=== PATIENT | female | born 1965 | race Caucasian/White ===

== ENCOUNTER 2019-04-22 08:23 | Outpatient (RCR) | payer MEDICARE, MEDICAID, SELFPAY | END 2019-05-13 00:01 | LOC: SPT 08:23 | PROVIDERS: Family Provider Physician Assistant; Visit Provider Specialist | DX: M25.551 Pain in right hip (principal) | CPT/HCPCS: 97161; 97530 ==

== ENCOUNTER 2019-06-03 07:53 | Inpatient (IN) | payer MEDICARE, MEDICAID, SELFPAY ==
[2019-06-02 08:57] VITALS: BMI 42.7
[2019-06-03] VITALS (20 sets, daily range): BP systolic 95–137; BP diastolic 59–84; PULSE 48–81; RESP 16–20; TEMP 36.3–37.4; O2SAT 92–100
[2019-06-03] MEDS: sodium chloride 0.9% 1,000 ML 30 ML IV (06:31)
[2019-06-03] MEDS: scopolamine 1.5 Patch 1 PATCH TRANSDERMA (06:31)
[2019-06-03] MEDS: ondansetron 2 mg/ML SDV 2 mL 4 MG IVP ×2 (06:32→14:23)
[2019-06-03] MEDS: heparin 5,000 unit/mL INJ 1 mL 5000 UNIT SUBCUT ×2 (06:32→23:09)
--- NOTE | 2019-06-03 06:34 | PM.HPUD ---
H&P update H&P Update: DATE OF SURGERY/PROCEDURE: 06/03/19 DATE H&P PERFORMED: 04/24/19 PLANNED PROCEDURE: Operation Date: 06/03/19 08:25 Proposed Procedures p Laparoscopic Gastric Sleeve w/ EGD/possible open(Not Applicable) - Antony June MD Full H&P HPI: PLANNED PROCEDURE: Laparoscopic vertical gastric sleeve and intraoperative EGD HPI: Chief complaint ; obesity HPI :this is a pleasant 54 years old female morbidly obese patient with multiple medical comorbidities, been struggling with her weight on daily basis, was referred to my bariatric surgery practice for further evaluation and potential intervention, undergone supervised medical weight loss and she met all the criteria for insurance approval as well as an upper GI study was done and demonstrated normal findings. ROS: ROS: General obesity Respiratory no difficulty in breathing Cardiovascular no chest pain or shortness of breath or dyspnea Gastrointestinal history of GERD Musculoskeletal left hip problem/fibromyalgia All other systems are negative Pertinent Exam Findings: PHYSICAL EXAM: alert, oriented x 3, clear to auscultation bilaterally and regular rate & rhythm OTHER PERTINENT EXAM FINDINGS: Abdominal examination; Morbidly obese, nontender, nondistended, soft No signs of guarding or rigidity A&P Assessment and plan (1) Obesity: After thorough history physical examination and reviewing the chart Overall, I believe the patient would be a great candidate for bariatric surgery.Patient have doubled demonstration understanding of all the appropriate teaching including diet, exercise and NSAID use. The patient appears to be committed to the lifestyle changes acquired for bariatric surgery I have discussed with the patient the potential risks of the surgery, including wound infection, wound problems,bleeding, anastomotic leak,internal hernia, stricture, ulceration, abdominal hernia, DVT/PE,, pneumonia,dumping syndrome, vitamin and mineral deficiencies, gallbladder and kidney stones ,sepsis, multiorgan failure and even , and potential future surgical interventions. Also patient is aware of potential related complications to bougie insertion and EGD, perforation of the esophagus or stomach or other viscera, may require further surgeries conversion to open Discussed with loss: 5% of total body weight prior to surgery An informed consent per chart to proceed with laparoscopic vertical gastric sleeve and esophagogastroduodenoscopy The patient understood and was aware of these complications. The patient verbalized understanding and agreed with the plan of care Patient received at least 60 minutes of counseling regarding nutritional guidelines specific for the bariatric surgery patient, we discussed in detail required diet and lifestyle changes that need to be made in order to be successful with weight loss after surgery. The patient has also been educated on multiple other options for weight loss which does not involve surgery, Also patient attended all seminars preoperatively, and All questions have been answered and all concerns have been addressed to patient's satisfaction. Will plan to send a standard preoperative blood work due to the patient's metabolic syndrome prior to bariatric surgery. In the form of CBC CMP complete lipid profile, vitamin D,B levels, coags, hemoglobin A1c, iron, folic acid level. Status: Acute Code(s): E66.9 - Obesity, unspecified
[2019-06-03] MEDS: pantoprazole 40 mg SDV IVP (06:38)
--- NOTE | 2019-06-03 07:10 | ANES.PREANES ---
Pre-Anesthetic Assessment Pre-Anesthetic Assessment: Height/Weight: Height 1.55 m Weight 102.512 kg Temp Pulse Resp BP Pulse Ox 97.9 F 65 18 122/68 96 06/03/19 06:14 06/03/19 06:14 06/03/19 06:14 06/03/19 06:14 06/03/19 06:14 Preop Diagnosis: Morbid obesITY Proposed Procedure: Operation Date: 06/03/19 08:25 Proposed Procedures p Laparoscopic Gastric Sleeve w/ EGD/possible open(Not Applicable) - Antony June MD Last intake: Intake Last Liquid Date 06/02/19 Last Liquid Time 23:00 Exam: Pre-Anes Outpt Exam: alert, oriented x 3, clear to auscultation bilaterally and regular rate & rhythm Airway: Submandibular: WNL Cervical ROM: WNL MP: 1 Dentition: False Pulmonary: Pulmonary: Asthma GI: GI: GERD Musc/skel: Musc/skel: Fibromyalgia and Lower Back Pain Comments: bilateral radiculopathy Neuropsych: Neuropsych: Bipolar Anesthetic Plan: ASA status: III Anesthesia: General Meds/Allergies Current Medications: Current Medications Generic Name Dose Route Start Last Admin Trade Name Freq PRN Reason Stop Dose Admin Sodium Chloride 1,000 mls @ 30 ml s/hr 06/03/19 06:15 06/03/19 06:31 Sodium Chloride 0.9% IV 06/04/19 06:14 30 mls/hr .Q24H PIERRE Administration Ondansetron HCl 4 mg 06/03/19 06:10 06/03/19 06:32 Zofran IVP 4 mg Q6H PRN Administration NAUSEA AND VOMITI NG PFSH Anesthesia PFSH: Medical History (Updated 06/03/19 @ 06:41 by Antony June MD) Obesity (Acute) Female Reproductive History: Date of last menstrual period: 06/02/09 Data Anesthesia Cardiac Studies: No Data to Display
[2019-06-03] MEDS: midazolam 1 mg/mL INJ 2 mL 2 MG IVP (07:35)
[2019-06-03] MEDS: fentaNYL 50 mcg/mL INJ 2mL IVP ×2 (07:35→11:50)
[2019-06-03] MEDS: lidocaine 2% INJ 20 mL INJECTION (09:48)
--- NOTE | 2019-06-03 11:21 | PM.OP ---
Operative Report Date of procedure: 06/04/19 Pre-op Diagnosis: Morbid obesITY Post-op diagnosis: same Procedure Done: Laparoscopic vertical gastric sleeve and intraoperative EGD Implants: Seam guard Specimens removed/disposition: Partial gastrectomy status post gastric sleeve Surgeon: Antony June Carton Inspector: Surgical Rebeca Elizabeth and Ana Circulating nurses Itzel and Christi Anesthesia: General (DIRECTOR CORPORATE SECURITY Mahamed) Estimated blood loss (mL): 50 IV fluids (mL): 1,000 Urine output (mL): 200 Complications: No immediate complication Findings: Normal-looking viscera Condition: stable Disposition: floor Brief History: This is a pleasant 54 years old female patient morbidly obese with multiple medical comorbidities, seen and evaluated in bariatric surgery office and was counseled for laparoscopic vertical gastric sleeve after she fulfilled all the criteria, patient agreed to proceed accordingly. Informed consent per chart Procedure: Patient was identified in holding area , appropriate pharmacologic DVT prophylaxis was given and preoperative IV fluid hydration, patient was then taken to the operating room where the patient was placed in supine position, intubated by anesthesia prophylactic antibiotics were given per protocol,Time-out was done verifying the patient's name/date of /planned procedure and destination after the procedure, all were in agreement. SCDs confirmed to be functioning, and beta shen protocol was confirmed. A Morrison catheter was inserted by the circulating nurse revealing clear urine. A foot board was applied to secure the patient while the patient is placed in reversed Trendelenburg, all pressure points were padded, and the patient was appropriately secured to the table, anesthesia was asked to rotate the table back and forth to verify that the patient is appropriately secured, and that was the case. The abdomen was prepped and draped under the usual sterile technique. A 1 cm transverse incision was made with a 15 blade scalpel approximately 15 cm below the xiphoid process and 3 cm left of the midline.A 12 mm optical trocar port was placed under direct vision into the peritoneal cavity without evidence of injury to peritoneal structures upon entry. The peritoneal cavity was insufflated with carbon dioxide gas up to 15 mmHg pressure. A 45? angle laparoscopy was placed through the port into the peritoneal cavity there was no significant blood, fluid, or evidence of intra-abdominal injury under direct visualization, 5 mm trocars were then used;a 12 mm trocar port was placed in the right epigastric region and a fourth 5 mm trocar port was placed in the mid epigastric region more caudad than and medial to the previous port. I lifted the omentum up to make sure there were no injuries encountered from the initial trocar insertion , and there was not. A 5 mm trocar port was placed in the left lateral flank and additional 5 mm trocar was inserted midway between the left lateral flank trocar and the initial 12 mm trocar , A subxiphoid stab incision was made and dissection into the peritoneum with 5 mm obturator.A grasping laparoscopic clamp was inserted through here and clamped to the right sanket of the diaphragm to elevate The liver for the entirety of the case. Patient was then placed in the reversed Trendelenburg Following this, the greater curvature of the stomach was freed from the omentum using the harmonic scalpel. This division included the short gastric vessels proximally. This dissection was carried from approximately 4 cm-6 cm proximal to the pylorus and extending all the way up to the angle of Hiss. During this process the posterior aspect of the stomach was mobilized from the underlying peritoneum and the posterior aspect of the stomach was well exposed. With the greater curvature of the stomach exposed from within 4-6 cm of the pylorus and extending to the angle of Hiss, which also included the posterior stomach, a 40 Czech standard template passed under direct vision down the esophagus, stomach, and into the first part of the duodenum by the anesthesia provider and under direct guidance and visualization by me,via the laparoscopy. Using the template 40 Czech aligned along the lesser curvature of the stomach and all the way to the first part of the Duodenum,the 40 Czech Bougie was used as a template the laparoscopic vertical gastric sleeve was performed starting from a point about 5 cm from the pylorus along the greater curvature.Using the [place] Laparoscopic GIOVANA linear cutting stapler with Seam guarded enforcement, a series of litzy were used to transect the stomach in a vertical fashion along the left side of the template.,Care was taken not to narrow the angularis Through the entire division of the stomach using the staplers,the template was always checked to be in good place and well aligned to the lesser curvature while dividing the stomach. This was carried all the way to the angle of Hiss.Green loads were used for all stapler loads. The staple line along the remaining tubularized stomach was tested for leaks and bleeding under direct vision as the 40 Czech template was removed (and there was no evidence of blood on the tip of the template) by a standard diagnostic EGD via the mouth by me after I scrubbed out , insufflation was achieved and the staple line submerged under saline, meanwhile a clamp was applied distally onto the end of the tubularized stomach to allow insufflation test for leak the clamp was held in place by my traffic assistant. There was no evidence of leak .There was adequate hemostasis along the staple line.EGD was taken out at this point after deflation of the tubularized stomach. At that point I scrubbed back in; The transected partial stomach, which included the greater curvature, was removed from the peritoneum through the first 12 mm trocar site, and was sent for permanent pathology Prior to closure of the fascia. A final look laparoscopy identified no injuries.. An interrupted 0 Vicryl suture on a granny needle suture passer was used to close the right epigastric and the other 12 mm trocar left of the midline fascial defects under direct visualization. The other trocars were removed under direct vision and no evidence of bleeding was identified. The pneumoperitoneum was decompressed. All skin incisions were irrigated with saline, then closed with litzy, followed by application of sterile dressings.The patient was extubated and transferred to the recovery room with normal vital signs. All counts of instruments and sponges and needles were completed at the end of the procedure I was present for the whole entire procedure
--- NOTE | 2019-06-03 11:38 | SUR.PHASEI ---
1132 PATIENT TO PACU AT THIS TIME FROM OR. RR EVEN AND UNLABORED. PWD. PLACED ON SIMPLE MASK AT 8L. SPO2 99%. CARO CATH IN PLACE. 6 INCISIONS NOTED TO ABDOMEN, CDI.
--- NOTE | 2019-06-03 12:27 | SUR.PHASEI ---
1213 PATIENT TO MED SURG VIA BED AT THIS TIME. RR EVEN AND UNLABORED. PWD. 6 INCISIONS TO ABDOMEN, CDI.
[2019-06-03] MEDS: morphine 4 mg/mL SDV 1 mL 2 MG IVP ×3 (12:48→23:29)
[2019-06-03] MEDS: sodium chloride 0.9% 1,000 ML 125 ML IV ×2 (12:49→20:46)
[2019-06-03] MEDS: famotidine 20 mg/2 mL INJ IVP ×2 (12:51→23:10)
[2019-06-04] VITALS (9 sets, daily range): BP systolic 130–150; BP diastolic 71–90; PULSE 56–90; RESP 17–22; TEMP 36.7–37.3; O2SAT 91–97
[2019-06-04 03:21] LABS: Hematocrit 35.6 % (37.0-47.0); Hemoglobin 12.2 g/dL (11.5-15.3)
[2019-06-04 03:32] LABS: Anion Gap 15.3 (5-19); Blood Urea Nitrogen 8 mg/dL (6-20); Calcium 8.4 mg/Dl (8.6-10.0); Carbon Dioxide 22 mmol/L (22-29); Chloride 101 mmol/L (98-107); Glomerular Filtration Rate 232.7 mL/min (90-130); Glucose 113 mg/dL (74-109); Potassium 3.3 mmol/L (3.5-5.1); Sodium 135 mmol/L (136-145)
[2019-06-04] MEDS: sodium chloride 0.9% 1,000 ML 125 ML IV ×3 (04:16→20:53)
[2019-06-04] MEDS: morphine 4 mg/mL SDV 1 mL 2 MG IVP ×2 (05:20→09:27)
--- NOTE | 2019-06-04 06:12 | P.PN_ITS ---
Subjective Subjective: Interval history: Patient overall feels well yet little bit sore No acute events overnight Vitals/I&O/Wt Last Vital Signs Temp 98.1 F 06/04/19 03:35 Pulse 66 06/04/19 03:35 Resp 20 H 06/04/19 05:20 BP 134/74 06/04/19 03:35 Pulse Ox 96 06/04/19 05:20 06/03/19 06/03/19 06/04/19 14:59 22:59 06:59 Intake Total 850 / 850 1093.75 / 1943.75 937.5 / 2881.25 Output Total 475 / 475 1100 / 1575 1050 / 2625 Balance 375 / 375 -6.25 / 368.75 -112.5 / 256.25 Weight last 48 hrs Weight 226 lb Physical Exam Const: COMMON NORMALS: no apparent distress and oriented x3 GENERAL APPEAR ANCE: cooperative ORIENTATION/CONSCIOUSNESS: Yes awake, Yes oriented to person, Yes oriented to place and Yes oriented to time Eye: COMMON NORMALS: PERRL and no scleral icterus PUPIL: Yes PERRL Chest: COMMONS NORMALS: inspection of chest normal Resp: COMMON NORMALS: normal respiratory effort and clear to auscultation bilaterally AUSCULTATION: clear to auscultation bilaterally Cardio: COMMON NORMALS: S1 normal heart sound and S2 normal heart sound; negative for no murmurs HEART SOUNDS: S1 normal and S2 normal GI: COMMON NORMALS: soft to palpation; negative for no hepatosplenomegaly INSPECTION: Yes normal to inspection PALPATION: Yes soft, No firm, Yes tender (At incision sites), No guarding, No rigid and No no hepatosplenomegaly Neuro: COMMON NORMALS: oriented x3 SENSORIUM/ORIENTATION: Yes oriented to p erson, Yes oriented to place and Yes oriented to time Psych: COMMON NORMALS: mental status grossly normal Urinary Catheter Management^: Morrison: Cath Placed During This Visit: no Data : 06/04/19 03:10 06/04/19 03:10 A&P Assessment and plan (1) S/P laparoscopic sleeve gastrectomy: Postoperative day 1 Upper GI study showed no leak we will start the patient on clear liquid P.o. pain medication Encourage ambulation with assistance Incentive spirometer every hour We will drop the IV fluids once the patient tolerates well p.o. Strict I's and O Assurance and education All questions have been answered and all concerns have been addressed to patient's satisfaction. Status: Acute Code(s): Z98.84 - Bariatric surgery status (2) Hypokalemia: Replacement with p.o. 40 mEq KCl x1 Status: Acute Code(s): E87.6 - Hypokalemia Attestations Medical Necessity Statement*: Medical necessity care is expected to cross 2 midnights Time Spent in Patient Care: 16 - 35 minutes (>than 50% of time spent in counselling and/or direct pt care on unit) . Coding Level of Care Code Acute Sap Portal Architect for Chg Fwd Diagnoses S/P laparoscopic sleeve gastrectomy Z98.84 Hypokalemia E87.6
[2019-06-04] MEDS: heparin 5,000 unit/mL INJ 1 mL 5000 UNIT SUBCUT ×3 (06:23→22:19)
--- NOTE | 2019-06-04 08:00 | FL_ITS ---
WS: [id number] Limited upper GI evaluation. HISTORY: Status post gastric sleeve. Rule out stricture or leak. COMPARISON: 01/01/2019. Fluoroscopy time: 0.1 minutes. Limited evaluation of the gastric sleeve due to patient's physical condition. Patient was unable to d rink more and needed to sit down. Patient swallowed the Gastrografin mixture without difficulty. There is no extravasation along the flores rgical procedure. Very slight delay in emptying of the distal esophagus due to mild postoperative tess ma. No strictures. FL/FL upper GI gastrografin [id number] IMPRESSION: Satisfactory recent postoperative gastric sleeve with no leak.
[2019-06-04] MEDS: famotidine 20 mg/2 mL INJ IVP ×2 (12:06→22:57)
[2019-06-04] MEDS: ondansetron 2 mg/ML SDV 2 mL 4 MG IVP ×2 (16:16→22:53)
[2019-06-04] MEDS: HYDROcodone-acetaminophen 7.5-325 mg Tablet 1 TAB PO ×2 (16:17→22:19)
[2019-06-04] MEDS: ropinirole 1 mg Tablet PO (20:54)
[2019-06-05] VITALS (9 sets, daily range): BP systolic 119–143; BP diastolic 56–85; PULSE 61–98; RESP 18–20; TEMP 36.8–37.3; O2SAT 91–95
[2019-06-05] MEDS: heparin 5,000 unit/mL INJ 1 mL 5000 UNIT SUBCUT ×3 (05:23→23:36)
[2019-06-05] MEDS: HYDROcodone-acetaminophen 7.5-325 mg Tablet 1 TAB PO ×3 (05:23→19:26)
[2019-06-05] MEDS: sodium chloride 0.9% 1,000 ML 125 ML IV (05:24)
[2019-06-05 05:33] LABS: Hematocrit 38.3 % (37.0-47.0); Hemoglobin 12.6 g/dL (11.5-15.3)
[2019-06-05 05:56] LABS: Anion Gap 13.6 (5-19); Blood Urea Nitrogen 8 mg/dL (6-20); Calcium 9.1 mg/Dl (8.6-10.0); Carbon Dioxide 23 mmol/L (22-29); Chloride 102 mmol/L (98-107); Glucose 104 mg/dL (74-109); Osmolality Calculated 276 mOsm/kg (285-295); Potassium 3.6 mmol/L (3.5-5.1); Sodium 135 mmol/L (136-145)
--- NOTE | 2019-06-05 11:25 | P.PN_ITS ---
Subjective Subjective: Interval history: Patient overall doing well Tolerating p.o. intake Issues with ambulation requiring physical therapy Vitals/I&O/Wt Last Vital Signs Temp 98.7 F 06/05/19 07:40 Pulse 61 06/05/19 08:51 Resp 18 06/05/19 08:51 BP 129/84 06/05/19 07:40 Pulse Ox 91 06/05/19 08:51 06/04/19 06/05/19 06/05/19 22:59 06:59 14:59 Intake Total 900 / 2867.253 4501 / 3020.000 240 / 240 Output Total 1220 / 1220 Balance 900 / 1900.000 -100 / 1800.000 240 / 240 Physical Exam Const: COMMON NORMALS: no apparent distress and oriented x3 GENERAL APPEARANCE: cooperative ORIENTATION/CONSCIOUSNESS: Yes awake, Yes oriented to person, Yes oriented to place and Yes oriented to time Chest: COMMONS NORMALS: inspection of chest normal Resp: COMMON NORMALS: normal respiratory effort and clear to auscultation bilaterally AUSCULTATION: clear to auscultation bilaterally Cardio: COMMON NORMALS: S1 normal heart sound and S2 normal heart sound; negative for no murmurs HEART SOUNDS: S1 normal and S2 normal GI: COMMON NORMALS: soft to palpation; negative for no hepatosplenomegaly INSPECTION: Yes normal to inspection PALPATION: Yes soft, No firm, No tender, No guarding, No rigid, No no hepatosplenomegaly and Yes other (Incisions are clean dry and and skin litzy in place) Neuro: COMMON NORMALS: oriented x3 SENSORIUM/ORIENTATION: Yes oriented to person, Yes oriented to place and Yes oriented to time Psych: COMMON NORMALS: mental status grossly normal Urinary Catheter Management^: Morrison: Cath Placed During This Visit: no Data : 06/05/19 05:01 06/06/19 05:14 A&P Assessment and plan (1) S/P laparoscopic sleeve gastrectomy: Patient undergone uneventful laparoscopic vertical gastric sleeve 06/03/19 postoperative day 2 today We will continue clear liquids Drop IV fluids to 50 mL/h Nutrition consultation follow recommendations Physical therapy on board to assess and evaluate for potential discharge home today or may require further assistance, apparently after physical therapy evaluation patient will be requiring nursing skilled facility for rehabilitation early on after surgery harvest worker field crop consultation Assurance and education All questions have been answered and all concerns have been addressed to patient's satisfaction. Status: Acute Code(s): Z98.84 - Bariatric surgery status Attestations Medical Necessity Statement*: Medical necessity care is expected to cross 2 midnights Time Spent in Patient Care: 16 - 35 minutes (>than 50% of time spent in counselling and/or direct pt care on unit) . Coding Level of Care Code Acute Habilitation Specialist for Chg Fwd Exam Problem Focused Diagnoses S/P laparoscopic sleeve gastrectomy Z98.84
[2019-06-05] MEDS: famotidine 20 mg/2 mL INJ IVP ×2 (11:44→23:35)
--- NOTE | 2019-06-05 17:05 | PC.NUTR ---
NUTR ED: Consult received for post op sleeve. Discussed with pt diet advancement for 14 day. Provided pt pro source jello while in hospital. No issues reported.
[2019-06-05] MEDS: ondansetron 2 mg/ML SDV 2 mL 4 MG IVP (19:09)
[2019-06-05] MEDS: sodium chloride 0.9% 1,000 ML 50 ML IV (19:27)
[2019-06-05] MEDS: ropinirole 1 mg Tablet PO (21:51)
[2019-06-06 03:57] VITALS: BP 121/72; PULSE 61; RESP 18; TEMP 37.1; O2SAT 93
[2019-06-06 06:17] LABS: Anion Gap 15.4 (5-19); Blood Urea Nitrogen 8 mg/dL (6-20); Carbon Dioxide 26 mmol/L (22-29); Chloride 101 mmol/L (98-107); Glucose 100 mg/dL (74-109); Osmolality Calculated 284 mOsm/kg (285-295); Potassium 3.4 mmol/L (3.5-5.1); Sodium 139 mmol/L (136-145)
[2019-06-06] MEDS: heparin 5,000 unit/mL INJ 1 mL 5000 UNIT SUBCUT (06:25)
[2019-06-06] MEDS: lanolin oint 7 gm 1 APPLIC TOPICAL (06:35)
[2019-06-06] MEDS: ondansetron 2 mg/ML SDV 2 mL 4 MG IVP (06:35)
--- NOTE | 2019-06-06 06:54 | P.PN_ITS ---
Subjective Subjective: Interval history: Patient continues to tolerate well p.o. intake and have good urine output She reports to me today that she has some tightness particularly when she is swallowing at the mid of her chest has been going on since today and first time that she would mention it to me today, otherwise she has been doing well her pain is under better control. She is able to get out of bed with assistance She does require bedside commode Vitals/I&O/Wt Last Vital Signs Temp 98.7 F 06/06/19 03:57 Pulse 61 06/06/19 03:57 Resp 18 06/06/19 03:57 BP 121/72 06/06/19 03:57 Pulse Ox 93 06/06/19 03:57 06/05/19 06/05/19 06/06/19 14:59 22:59 06:59 Intake Total 1720 / 1720 240 / 1960 120 / 2080 Output Total 2900 / 2900 600 / 3500 Balance 1720 / 1720 -2660 / -940 -480 / -1420 Physical Exam Const: COMMON NORMALS: no apparent distress and oriented x3 GENERAL APPEARANCE: cooperative ORIENTATION/CONSCIOUSNESS: Yes awake, Yes oriented to person, Yes oriented to place and Yes oriented to time HENMT: COMMON NORMALS: normocephalic HEAD & SCALP: normocephalic Eye: COMMON NORMALS: PERRL and no scleral icterus PUPIL: Yes PERRL Lymph: LYMPHATIC: no lymphadenopathy noted Chest: COMMONS NORMALS: inspection of chest normal Resp: COMMON NORMALS: normal respiratory effort and clear to auscultation bilaterally AUSCULTATION: clear to auscultation bilaterally Cardio: COMMON NORMALS: S1 normal heart sound and S2 normal heart sound; negative for no murmurs HEART SOUNDS: S1 normal and S2 normal GI: COMMON NORMALS: soft to palpation; negative for no hepatosplenomegaly INSPECTION: Yes normal to inspection PALPATION: Yes soft, No firm, No tender, No guarding, No rigid, No no hepatosplenomegaly and Yes other (Incisions are clean dry and intact and skin litzy in place) Neuro: COMMON NORMALS: oriented x3 SENSORIUM/ORIENTATION: Yes oriented to person, Yes oriented to place and Yes oriented to time Psych: COMMON NORMALS: mental status grossly normal Urinary Catheter Management^: Morrison: Cath Placed During This Visit: no Data : 06/05/19 05:01 06/06/19 05:14 A&P Assessment and plan (1) S/P laparoscopic sleeve gastrectomy: Patient undergone uneventful laparoscopic vertical gastric sleeve 06/03/19 postoperative day 3 today We will continue clear liquids Will order a stat EKG and cardiac enzymes will follow the protocol to rule out potential any underlying cardiac event, clinically most likely the patient's tightness of the chest is likely due to esophageal spasms, once this is clear patient will be potentially for discharge to jail facility. We will continue cardiac monitoring Continue physical therapy We will follow on further social worker delinquency prevention input Patient did develop some tightness at the retrosternal area with swallowing, will plan to send for serial cardiac enzymes and EKGs, if that is negative will plan to discharge the patient to a jail today. Assurance and education All questions have been answered and all concerns have been addressed to patient's satisfaction. Status: Acute Code(s): Z98.84 - Bariatric surgery status Attestations Medical Necessity Statement*: Medical necessity care is expected to cross 2 midnights Time Spent in Patient Care: 16 - 35 minutes (>than 50% of time spent in counselling and/or direct pt care on unit) . Coding Level of Care Code Acute Hvac Operations Technician for Chg Fwd Exam Problem Focused Diagnoses S/P laparoscopic sleeve gastrectomy Z98.84
[2019-06-06 07:28] VITALS: BP 122/78; PULSE 63; RESP 18; TEMP 37.2; O2SAT 90
[2019-06-06 07:39] LABS: Troponin(5th) Baseline 6 ng/mL (0-10)
[2019-06-06 07:47] VITALS: PULSE 62; O2SAT 91
--- NOTE | 2019-06-06 09:04 | ECG_ITS ---
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 [email or web address]
[2019-06-06 09:29] LABS: Troponin 5 2HR Delta 0 ABS# (0-10)
--- NOTE | 2019-06-06 12:13 | P.DS_ITS ---
Discharge Providers Date of Admission: 06/03/19 07:53 Date of Discharge: 06/08/19 Attending Provider at Admission: Antony June MD Attending Provider at Discharge: Daryrl Gonzalez Primary Care Provider: Liss Hughes Diagnoses at Discharge Discharge Diagnosis (1) S/P laparoscopic sleeve gastrectomy: Status: Acute Problem details: Discharge to half-way today Specific instructions with regard to nutrition was given to the patient with her package of discharge to the half-way Return to bariatric surgery office in 1 Reason for Visit Reason for Visit: Reason For Visit: Morbid obesity Hospital Course Discharge Summary: Overall patient is doing well, tolerating by mouth intake, stable vital signs, good urine output Patient did complain of some retrosternal tightness today and serial of cardiac enzymes and EKGs were sent and all came back as negative, likely the patient symptoms related to swallowing which is expected early on due to postsurgical edema. Patient is conscious alert oriented X3 BMI 42.7 Head and neck examination PERRLA no masses no cervical lymphadenopathy no jaundice Cardiac examination audible S1-S2 no murmurs no gallops no arrhythmias Chest is clear bilateral,abscence of Rhonchi or wheezes,no surgical emphysema Abdomen nontender nondistended soft no organomegaly guarding or rigidity/no signs of peritonitis/incisions are clean dry and intact and skin litzy in jackie ce Extremities no cyanosis no clubbing no edema Physical Exam Const: COMMON NORMALS: no apparent distress and oriented x3 GENERAL APPEARANCE: cooperative ORIENTATION/CONSCIOUSNESS: Yes awake, Yes oriented to person, Yes oriented to place and Yes oriented to time HENMT: COMMON NORMALS: normocephalic HEAD & SCALP: normocephalic Eye: COMMON NORMALS: PERRL and no scleral icterus PUPIL: Yes PERRL Lymph: LYMPHATIC: no lymphadenopathy noted Chest: COMMONS NORMALS: inspection of chest normal Resp: COMMON NORMALS: normal respiratory effort and clear to auscultation bilaterally AUSCULTATION: clear to auscultation bilaterally Cardio: COMMON NORMALS: S1 normal heart sound and S2 normal heart sound; negative for no murmurs HEART SOUNDS: S1 normal and S2 normal GI: COMMON NORMALS: soft to palpation; negative for no hepatosplenomegaly INSPECTION: Yes normal to inspection PALPATION: Yes soft, No firm, No tender, No guarding, No rigid, No no hepatosplenomegaly and Yes other (Incisions are clean dry and intact and skin litzy in place) Neuro: COMMON NORMALS: oriented x3 SENSORIUM/ORIENTATION: Yes oriented to person, Yes oriented to place and Yes oriented to time Psych: COMMON NORMALS: mental status grossly normal Skin: COMMON NORMALS: no rashes or lesions noted GENERAL SKIN EXAM: no rashes or lesions noted Urinary Catheter Management^: Morrison: Cath Placed During This Visit: no Discharge Data Data Completed and Pending: Completed Studies During Hospitalization Category Date Time Status [place] upper GI gastr ografin 88262 Rout ine Exams 06/04/19 08:00 Completed Pathology: Surgic al [PTH] Routine Pth 06/03/19 11:39 Completed Pending at discharge Category Date Time Status ES surgery / GI i mages Routine Exams 06/03/19 08:35 Taken Troponin(5th) 6 h our. Timed Lab 06/06/19 13:04 Ordered Labs from last 24 hours 06/06/19 06/06/19 06/06/19 09:08 07:15 05:14 Sodium 139 Potassium 3.4 L Chloride 101 Carbon Dioxide 26 Anion Gap 15.4 BUN 8 Creatinine 0.4 L GFR Calculation 167.0 H Glucose 100 Calculated Osmolal ity 284 L Calcium 9.0 Troponin T Baselin e 6 Troponin T 120 Min darline 6.00 Delta Troponin T 0 Vitals: Last Vital Signs Temp 98.9 F 06/06/19 07:28 Pulse 62 06/06/19 07:47 Resp 18 06/06/19 07:28 BP 122/78 06/06/19 07:28 Pulse Ox 91 06/06/19 07:47 Discharge Plan Discharge Patient Disposition: Home, Self-Care Condition: Stable Prescriptions: New Zofran 4 mg tablet 4 mg PO Q6H Qty: 30 RF: 1 Lovenox 30 mg/0.3 mL syringe 30 mg SUBCUT DAILY Qty: 0.3 RF: 0 Continued Advair Diskus 250-50 mcg/dose blister with device 250 inh INHALATION BID RF: 0 Combivent Respimat 20-100 mcg/actuation mist 18 - 103 spray INHALATION BID PRN (Reason: Dyspepsia) RF: 0 hydrocodone-acetaminophen 7.5-325 mg tablet 7.5 tab PO TID PRN (Reason: Pain) RF: 0 ropinirole 1 mg tablet 1 mg PO DAILY RF: 0 Discontinued meloxicam 15 mg tablet 15 mg PO DAILY RF: 0 Discharge Orders: Discharge Order (Routine); Ordered 06/06/19 Ordered By: Antony June Referrals: [facility] [Outside] Patient Instructions: Ondansetron (By mouth), Enoxaparin (Injection), Hypokalemia (DC), Obesity (DC) Activity Restrictions/Additional Instructions: 1. Patient can shower after 48 hours from surgery 2. Remove LITZY ON rtc 3. Up and walking as tolerated 4. Do lift more than 5 pounds first 2 weeks after surgery and not more than 25 pounds 6 to 8 weeks after surgery. 5. Do not operate heavy machinery or drive while using pain medications. 6.Contact the office or return to the ER for worsening nausea vomiting fevers or chills, or noticing any redness around incision sites or discharge. 6. Advised to return to ER or contact my office if there are any signs of infection like, increasing pain, fevers, chills, redness or drainage of pus. Discharge Date/Time: 06/06/19 15:46 Discharge Attestations Time Spent in Discharge Care*: less than 30 min Quality Metrics Clinical Quality Measures During this hospital stay, did patient experience: None Coding Level of Care Code Acute Liquor Department Manager for Chg Fwd Diagnoses S/P laparoscopic sleeve gastrectomy Z98.84
--- NOTE | 2019-06-06 12:13 | PC.SOCIAL ---
IMM Update Pg 2 of IMM given and explained to patient who voiced understanding. Signed/dated/timed and placed in chart. Copy provided to patient.
[2019-06-06 12:17] VITALS: BP 116/81; PULSE 69; RESP 18; TEMP 37.1; O2SAT 93
--- NOTE | 2019-06-06 13:04 | ECG_ITS ---
Measurements Intervals [place] Rate: 74 P: 10 PA: 141 QRS: -4 QRSD: 102 T: 10 QT: 377 QTc: 420 SINUS RHYTHM Compared to ECG 03/16/2015 00:01:21 No significant changes Electronically Signed On 06-06-2019 15:37:56 ROUGH ROUNDER MACHINE by Burke Kilpatrick M.D. [id number]
[2019-06-06 13:41] LABS: Troponin 5 6HR Delta 0 ng/L (0-12)
[2019-06-06 14:25] VITALS: BP 116/81; PULSE 69; RESP 18; TEMP 37.1; O2SAT 93
== END 2019-06-06 15:46 | disposition home or self-care (01) | DRG 621 ==
PROVIDERS: Admitting Provider Surgery; Family Provider Physician Assistant; PCP Physician Assistant; Visit Provider Pathology Anatomic Pathology & Clinical Pathology
PROC: 0DB64Z3 Excision of Stomach, Percutaneous Endoscopic Approach, Vertical (ICD-10-PCS; CPT 43775; principal; 2019-06-03 08:25)
PROC: 0DJ08ZZ Inspection of Upper Intestinal Tract, Via Natural or Artificial Opening Endoscopic (ICD-10-PCS; CPT 43235; 2019-06-03 08:25)
DX: E66.01 Morbid (severe) obesity due to excess calories (principal); G25.81 Restless legs syndrome; M48.061 Spinal stenosis, lumbar region without neurogenic claudication; F31.9 Bipolar disorder, unspecified; K21.9 Gastro-esophageal reflux disease without esophagitis; M25.552 Pain in left hip; G89.29 Other chronic pain; Z88.5 Allergy status to narcotic agent; Z68.41 Body mass index [BMI] 40.0-44.9, adult; Z79.51 Long term (current) use of inhaled steroids; Z79.899 Other long term (current) drug therapy
CPT/HCPCS: 12345; 36415; 74240; 80048; 84484; 85014; 85018; 88309; 93005; 96365; 96372; 96374; 96375; 97161; 97530; C9113; J0131; J0690; J1100; J1644; J2001; J2250; J2270; J2405; J2704; J2710; J3010; J3490; J7030

== ENCOUNTER 2019-06-09 12:46 | Outpatient (CLI) | payer MEDICARE, MEDICAID, SELFPAY ==
--- NOTE | 2019-06-09 12:55 | CT_ITS ---
WS: [id number] CT ABDOMEN AND PELVIS WITH CONTRAST HISTORY: abdominal pain, follow-up to surgery. TECHNIQUE: Imaging performed of the abdomen and pelvis with IV contrast. Single phase imaging of the abdomen. Coronal and sagittal reformats are submitted. All CT scans at [facility] use at least one of these dose optimization techniques: automated exposure control; mA and/or kV adjustment per patient size (includes targeted exams where dose is matched to clinical indication); or iterativ e reconstruction. IV CONTRAST: Omnipaque 300; 95 mL IV. Oral contrast: Yes. DLP: 1810.8 mGy.cm COMPARISON: 08/11/2015 Lower thorax: Mild dependent changes at the lung bases. Heart is normal size. No hiatal hernia. Liver/biliary system: Normal size with no intrahepatic dilatation. Gallbladder: Normal. No gallstones or wall thickening. No pericholecystic fluid. Pancreas: Normal. Spleen: Normal size spleen with a few areas of decreased attenuation similar to the prior study from 2016. Adrenal glands: Normal. Right kidney: Normal. Left kidney: Small parapelvic cysts with no obstruction. Aorta: Normal. Lymphadenopathy: None. Free fluid: None. GI tract: Recent postoperative changes of gastric sleeve are identified. There is some very mild radha a and stranding in the soft tissues around the gastric sleeve and mesentery in the anterior abdomen. No hematoma. No obstruction of the oral contrast to the gastric sleeve. Abdominal wall: Recent postoperative laparoscopic changes in the soft tissues. No hematoma. There are a few subtle small foci of air in the LEFT lateral abdominal wall which may be postoperative. No rib fracture is evident. Pelvis: Well-distended urinary bladder. Air present in the urinary bladder. No free fluid. No adenopa thy in the pelvis. Bones: Severe osteoarthritis at the LEFT hip. There is bone upon bone and subchondral changes. New si ake 2015. CT/CT abdomen pelvis w con* [id number] IMPRESSION: 1. Recent postoperative changes of gastric sleeve. No complications evident fr om the recent fall. 2. Mild dependent changes at the lung bases. 3. Severe osteoarthritis LEFT hip. 4. In the urinary bladder. If no recent instrumentation consider gas producing organisms and urinary tract infection.
[2019-06-09] MEDS: iohexol 300 mg/mL 50 mL Btl PO (13:16)
[2019-06-09] MEDS: iohexol 300 mg/mL 100 mL Btl IV (14:20)
== END 2019-06-09 12:47 | disposition home or self-care (01) ==
LOC: RAD 12:50
PROVIDERS: Family Provider Physician Assistant; PCP Physician Assistant; Visit Provider Surgery
DX: R10.9 Unspecified abdominal pain (principal); Z98.84 Bariatric surgery status; M16.12 Unilateral primary osteoarthritis, left hip
CPT/HCPCS: 74177

== ENCOUNTER → 2019-07-09 14:50 | Outpatient (BNVA) | payer MEDICARE, MEDICAID, SELFPAY | PROVIDERS: Family Provider Physician Assistant; PCP Physician Assistant; Visit Provider Specialist | DX: M25.552 Pain in left hip (principal) | CPT/HCPCS: 73502 ==

== ENCOUNTER 2019-09-29 13:32 | Outpatient (CLI) | payer MEDICARE, MEDICAID, SELFPAY ==
[2019-09-29 14:33] LABS: Basophils % 0.6 %; Eosinophils # 0.1 10^3/uL (0.0-0.8); Eosinophils % 2.6 %; Hematocrit 39.6 % (37.0-47.0); Hemoglobin 13.3 g/dL (11.5-15.3); Lymphocytes # 2.3 10^3/uL (0.8-4.8); Lymphocytes % 41.9 %; Mean Corpuscular HGB Conc 33.6 g/dL (30.0-36.0); Mean Corpuscular Hemoglobin 30.9 pg (28.0-34.0); Mean Corpuscular Volume 92.1 fL (81-99); Mean Platelet Volume 10.4 fL (7.4-10.4); Monocytes # 0.4 10^3/uL (0.2-0.9); Neutrophils # 2.6 10^3/uL (1.8-7.7); Neutrophils % 47.7 %; Nucleated Red Blood Cells % 0.6 %; Platelet Count 246 10^3/cmm (130-400); Red Cell Distribution Width 12.5 % (12.1-15.1); White Blood Count 5.4 10^3/uL (4.0-10.0)
[2019-09-29 15:07] LABS: Estmated Average Glucose 120; Hemoglobin A1C 5.8 % (4.0-6.0)
[2019-09-29 15:11] LABS: Alanine Aminotransferase 12 U/L (0-33); Alkaline Phosphatase 85 IU/L (35-105); Anion Gap 15.9 (5-19); Aspartate Amino Transferase 19 U/L (0-32); Blood Urea Nitrogen 16 mg/dL (6-20); Calcium 9.7 mg/dL (8.5-10.5); Carbon Dioxide 26 mmol/L (22-29); Chloride 104 mmol/L (98-107); Chol HDL Ratio 3.18 mg/dL (0.0-4.40); Cholesterol 156 mg/dL (0-200); Ferritin 199 ng/mL (15-150); Globulin 3.5 g/dL (1.3-4.6); Glucose 89 mg/dL (65-115); HDL Cholesterol 49 mg/dL (60-100); Iron 122 ug/dL (37-145); LDL Cholesterol Calculated 80 mg/dL (50-129); LDL HDL Ratio 1.63 RATIO (0.00-3.22); Osmolality Calculated 290 mOsm/kg (285-295); Percent Saturation 43.5 % (20-50); Phosphorus 4.1 mg/dL (2.5-4.5); Potassium 3.9 mmol/L (3.5-5.1); Sodium 142 mmol/L (136-145); Thyroid Stimulating Hormone 0.75 uIU/mL (0.27-4.20); Total Bilirubin 0.5 mg/dL (0.15-1.2); Total Iron Binding Capacity 280 mcg/dl; Total Protein 7.5 g/dL (6.6-8.7); Triglycerides 133 mg/dL (0-150); Unsaturated Iron Binding 158 ug/dL (112-347); Vitamin B12 316 pg/mL (232-1245)
[2019-09-29 15:54] LABS: Calcium 8.9 mg/dL (8.5-10.5); Parathyroid Hormone 51.6 pg/mL (15-65)
[2019-09-30 05:11] LABS: Folate Level > 20.0 ng/mL (4.8-37.3)
[2019-10-03 08:51] LABS: Vitamin B1(Thiamin) Plas/Ser 17 nmol/L (8-30)
[2019-10-03 15:57] LABS: Vit D 1,25 (Oh)2, Total 43 pg/mL (18-72); Vit D2 1,25 (Oh)2 <8 pg/mL; Vit D3 1,25 (Oh)2 43 pg/mL
== END 2019-09-29 13:33 | disposition home or self-care (01) ==
PROVIDERS: PCP Physician Assistant; Visit Provider Surgery
DX: E66.9 Obesity, unspecified (principal)
CPT/HCPCS: 36415; 80053; 80061; 82248; 82310; 82607; 82652; 82728; 82746; 83036; 83540; 83550; 83735; 83970; 84100; 84425; 84443; 85025

== ENCOUNTER → 2019-10-24 13:21 | Outpatient (BNVA) | payer MEDICARE, SELFPAY | PROVIDERS: PCP Physician Assistant; Visit Provider Psychiatry & Neurology Psychiatry | DX: F60.3 Borderline personality disorder (principal); F41.1 Generalized anxiety disorder; F15.21 Other stimulant dependence, in remission; F33.2 Major depressive disorder, recurrent severe without psychotic features | CPT/HCPCS: 99204 ==

== ENCOUNTER → 2019-10-30 11:16 | Outpatient (BNVA) | payer MEDICARE, MEDICAID, SELFPAY | PROVIDERS: PCP Physician Assistant; Visit Provider Specialist | DX: M16.12 Unilateral primary osteoarthritis, left hip (principal) | CPT/HCPCS: 73502; 87081 ==

== ENCOUNTER 2019-11-04 13:26 | Inpatient (IN) | payer MEDICARE, MEDICAID, SELFPAY ==
[2019-10-31 08:13] VITALS: BMI 33.6
--- NOTE | 2019-10-31 08:28 | P.ANESASSM_ITS ---
Pre-Anesthetic Assessment Pre-Anesthetic Assessment: Height/Weight: Height 1.55 m Weight 80.739 kg Preop Diagnosis: Severe degenerative osteoarthritis left hip Proposed Procedure: Operation Date: 11/04/19 10:10 Proposed Procedures p Left total hip arthroplasty 92378/M16.12(Left) - Alexia Calix MD Social: Social History: No alcohol and No tobacco Exam: Pre-Anes Outpt Exam: alert, oriented x 3, clear to auscultation bilaterally and regular rate & rhythm Airway: Submandibular: WNL Cervical ROM: WNL MP: 1 Dentition: Other (very poor dentation) History/ROS: No significant history except as noted Pulmonary: Pulmonary: Asthma (mild) and Sleep apnea CV/HEM: CV/HEM: None reported : : None reported Hepatic: Hepatic: None reported GI: GI: None reported Metabolic: Metabolic: None reported Musc/skel: Musc/skel: Fibromyalgia, Lower Back Pain and OA/DJD Neuropsych: Neuropsych: Anxiety, Bipolar and Depression Anesthetic Plan: ASA status: 3 Anesthesia: Anesthesia Evaluation and General Risk of > 500 ml blood loss (7ml/kg in children): Yes, adequate IV access and fluids planned PFSH Anesthesia PFSH: Medical History Arthritis SPINAL STENOSIS OF LUMBAR REGION Avascular necrosis of bone of left hip Bipolar disorder Fibromyalgia Gastroesophageal reflux Obesity Surgical menopause Surgical History History of hysterectomy History of rotator cuff surgery Family History Denies family history of Anesthesia complication Bleeding disorder Social History Smoking and tobacco status: never smoked Second hand smoke exposure: No Smoking risk assessment/counseling performed?: No Alcohol intake: never Adopted: No Caregiver/support person: Yes Lives independently: Yes Household members: significant other Housing: House Marital status: Single Highest education level completed: High School Graduate service: No Current occupational status: disabled Current occupational exposures/hazards: No Pets and animals: No History of recent travel: No Sexually active: No Current gender identity: Female Tracie/Congregational: Hinduism Special tracie needs: No Agree to transfusion: No Financial difficulty paying for basics: Decline to Answer Female Reproductive History: Date of last menstrual period: 10/11/07 Data Anesthesia Cardiac Studies: No Data to Display
[2019-10-31 08:53] LABS: Bilirubin Urine Neg (NEGATIVE); Blood Urine 2+ (Negative); Glucose Urine UA Norm (Normal); Ketones Urine Negative (Negative); Nitrate Urine Positive (Negative); Protein Urine Neg (Negative); Specific Gravity, Urine 1.015 (1.005-1.030); Urine Appearance SL Hazy (CLEAR); Urine Color Yellow (Yellow); Urobilinogen Urine 1 mg/dL (Negative)
[2019-10-31 08:54] LABS: Add Urine Microscopic? YES; Leukocyte Esterase Urine 1+ (Negative)
[2019-10-31 08:55] LABS: Basophils # 0.1 10^3/uL (0.0-0.1); Basophils % 0.9 %; Eosinophils # 0.2 10^3/uL (0.0-0.8); Eosinophils % 3.3 %; Hemoglobin 12.5 g/dL (11.5-15.3); Lymphocytes # 2.9 10^3/uL (0.8-4.8); Lymphocytes % 51.1 %; Mean Corpuscular HGB Conc 32.9 g/dL (30.0-36.0); Mean Corpuscular Hemoglobin 30.3 pg (28.0-34.0); Mean Platelet Volume 10.5 fL (7.4-10.4); Monocytes # 0.5 10^3/uL (0.2-0.9); Neutrophils # 2.1 10^3/uL (1.8-7.7); Neutrophils % 36.5 %; Nucleated Red Blood Cells % 0 %; Platelet Count 246 10^3/cmm (130-400); Red Blood Count 4.13 10^6/uL (4.1-5.3); White Blood Count 5.8 10^3/uL (4.0-10.0)
[2019-10-31 09:02] LABS: Alanine Aminotransferase 6 U/L (0-33); Albumin Level 3.9 g/dL (3.5-5.2); Alkaline Phosphatase 80 IU/L (35-105); Anion Gap 13.8 (5-19); Aspartate Amino Transferase 18 U/L (0-32); Blood Urea Nitrogen 14 mg/dL (6-20); Calcium 9.1 mg/dL (8.5-10.5); Carbon Dioxide 25 mmol/L (22-29); Chloride 102 mmol/L (98-107); Glucose 96 mg/dL (65-115); Osmolality Calculated 280 mOsm/kg (285-295); Potassium 3.8 mmol/L (3.5-5.1); Sodium 137 mmol/L (136-145); Total Bilirubin 0.6 mg/dL (0.15-1.2); Total Protein 6.9 g/dL (6.6-8.7)
[2019-10-31 09:04] LABS: Add Urine Culture? Yes; Bacteria Urine 4+; Squamous Epithelial Cell Urine 0-4 (0-5); WBC Urine 15-25 /hpf (0-5)
[2019-11-04] VITALS (42 sets, daily range): BP systolic 84–122; BP diastolic 41–79; PULSE 57–102; RESP 12–23; TEMP 36.2–36.9; O2SAT 2–100
--- NOTE | 2019-11-04 | XR_ITS ---
WS: [id number] PELVIS: AP VIEW SUBMITTED HISTORY: POST OP COMPARISON: 10/30/2019 Recent placement of a LEFT hip arthroplasty. Surgical changes in the soft tissues. No complications a re evident. XR/XR pelvis 1-2V* [id number] IMPRESSION: Satisfactory placement LEFT hip arthroplasty on this single radiograph.
[2019-11-04] MEDS: sodium chloride 0.9% 1,000 ML 30 ML IV ×2 (08:11→22:17)
[2019-11-04 08:16] LABS: Bacteria Urine TRACE; Bilirubin Urine Neg (NEGATIVE); Blood Urine Neg (Negative); Glucose Urine UA Norm (Normal); Ketones Urine Negative (Negative); Leukocyte Esterase Urine Trace (Negative); Mucus Urine TRACE; Nitrate Urine Negative (Negative); Protein Urine Neg (Negative); RBC Urine RARE /hpf (0-2); Squamous Epithelial Cell Urine 0-4 (0-5); Sulfosalicylic Acid Urine Negative (Negative); Urine Appearance Clear (CLEAR); Urine Color Yellow (Yellow); Urobilinogen Urine Norm (Negative)
[2019-11-04 08:17] LABS: Add Urine Culture? No
[2019-11-04] MEDS: CELEcoxib 200 mg Capsule 400 MG PO (08:20)
[2019-11-04] MEDS: fentaNYL 50 mcg/mL INJ 2mL 100 MCG IVP (08:47)
--- NOTE | 2019-11-04 09:52 | W.PM.OPSUD ---
Surgery/Procedure H&P Update DATE OF PROCEDURE: November 04, 2019 DATE H&P PERFORMED: 10/30/19 H&P UPDATE INFORMATION: I have reviewed H&P completed within last 30 days, I have examined patient prior to procedure and H&P is in [facility] EMR on date indicated PREOP DIAGNOSIS: Severe DJD Left Hip PRIMARY INDICATION FOR PROCEDURE: Hip Pain PLANNED PROCEDURE: Operation Date: 11/04/19 10:10 Proposed Procedures p Left total hip arthroplasty 10961/M16.12(Left) - Alexia Calix MD
[2019-11-04] MEDS: vancomycin 1,000 MG in sodium chloride 0.9% 250 ML 250 MG IV ×2 (10:25→16:27)
[2019-11-04] MEDS: vancomycin 1,000 MG SDV 1000 MG XX (11:34)
[2019-11-04] MEDS: ceFAZolin 1,000 mg SDV 1000 MG IRRIGATION (11:35)
[2019-11-04] MEDS: tranexamic acid 1,000 mg/10mL SDV 2000 MG IRRIGATION (12:41)
--- NOTE | 2019-11-04 13:46 | P.OP_ITS ---
Operative Report Date of procedure: November 04, 2019 Pre-op Diagnosis: Severe DJD Left Hip Post-op diagnosis: same Post-op Findings: Severe degenerative osteoarthritis of the left hip with osteophyte formation and cystic changes Procedure Done: Left total hip arthroplasty utilizing the following implants from the Ethel Accolade II total hip system: The size 50 mm solid back acetabular shell with a D alpha code and an MDM liner size 38 mm inner diameter by D alpha code. An Accolade II size 6 x 132 degree neck angle hip stem, femoral head size 22.2 mm outer diameter and +0 mm offset inside of an MDM insert size inner diameter 22.2 mm to match the 38D Specimens removed/disposition: Femoral head, disposed of Pathology: none sent Surgeon: Alexia Calix Public Address System Mechanic: Kimmy Funes Anesthesia: General (Intubated, ASA 3) Estimated blood loss (mL): 1,000 IV fluids (mL): 1,500 IV fluids: With 50 mL of 25% albumin given as well, postoperatively 1 unit packed red blood cells Urine output (mL): 1,000 Complications: None Findings: Severe degenerative osteoarthritis of the left hip with large osteophytes and contracture of soft tissue. Large amount of hip effusion. Following placement of the prosthesis, we had stability at 90 degrees of flexion with 90 degrees of internal rotation and 30 degrees of adduction. We also had stability to toe hang and external rotation. Condition: stable Disposition: PACU (Then admitted to the floor for postoperative rehabilitation and pain management as an observation patient overnight) Brief History: This 54-year-old woman presented with complaints of severe left hip pain. She has had significant limitations in her activities of daily living. She underwent bariatric surgery to meet criteria to proceed with total hip arthroplasty. Preoperatively, the patient did have a urinary tract infection which was treated with Bactrim DS. Risks and complications of surgery were discussed with the patient. She understood and wished to proceed. Consents were signed. Questions were answered. Procedure: Patient was brought to the operating theater. She was transferred to the operating room table and subsequently administered a general anesthetic intubated, ASA 3. Following administration of adequate anesthesia, the patient was placed in full lateral position and held in position with a pegboard. The patient's left lower extremity was then prepped and draped in usual fashion utilizing DuraPrep. It was draped free. Following prepping and draping a surgical pause was performed. At the time of surgical pause, we identified the site and side of surgery. We also identified the patient and preoperative surgical markings. Confirmation was made of equipment availability. Additionally, the patient's preoperative IV antibiotic, Ancef 2 g, vancomycin 1 g secondary to her recently diagnosed urinary tract infection, and TXA 1 g was confirmed as being given in a timely fashion and being the appropriate. Following the surgical pause, an incision was made centering over the patient's greater trochanter continuing proximally and distally as necessary to allow access to the hip joint. Dissection continued through skin and soft tissues using a scalpel, and hemostasis was obtained using electrocautery. The tensor fascia enzo was identified and incised longitudinally. Sciatic nerve was identified and protected throughout the surgical procedure. A Charnley U retractor was placed after the tensor fascia enzo had been incised longitudinally, and the sciatic nerve had been identified. The hip was internally rotated, and the piriformis muscle was identified and tagged. Piriformis muscle along with the remaining short external rotators were then incised from the posterior aspect of the hip joint. These were retracted posteriorly. The capsule was entered in a T-type fashion with the edges being tagged. There were noted to be significant femoral head and acetabular osteophytes. Appropriate osteotomy was performed of the femoral neck following hip dislocation. We then evaluated the acetabulum. The femur was retracted anteriorly. Soft tissues were retracted and the labrum was removed. We then began reaming. Reaming was accomplished sequentially. We reamed to a size 49 to allow for a size 50 acetabular shell. The acetabulum was impacted into position. The dome hole was filled with the appropriate metal plug. Also, we confirmed that the acetabular insert was completely seated prior to addressing the femur. After the acetabulum was in appropriate position, we placed the MDM liner without difficulty. The cup was noted to seat nicely and had good fixation upon impact. Attention was directed to the proximal femur. The proximal femur was lifted out of the wound. A canal finder was passed after the box chisel. The reamer was used to lateralize. We then began broaching. We broached sequentially and had excellent fit and fill with the size 6 Accolade II 132 degree neck angle stem. A trial reduction was accomplished with a +0 mm femoral head inside the appropriate MDM insert. This gave excellent stability, and with this in place, we had the above stabilities, and at that time, we felt that we had restored leg lengths. Therefore, the +0 mm offset femoral head was chosen to reestablish leg lengths and give better stability. Therefore, trial components were removed after the hip was dislocated. The size 6 Accolade II 132 degree neck angle hip stem was impacted into position without difficulty and onto this was placed a +0 mm offset femoral head with the appropriate MDM liner. The hip was then reduced without difficulty. With this construct, we had the above-noted stability. The stem was noted to seat nicely prior to placement of the femoral head. The patient did have significant bleeding throughout the surgical procedure, therefore, the wound was irrigated with TXA 2 g and 100 cc crystalloid. This was suctioned. The wound was then copiously irrigated with 20 mL of Betadine and 500 mL of normal saline mixed together. Subsequently, we suctioned this out and irrigated the wound copiously with lactated Ringer's. Following reduction of the prosthesis once again, we confirmed the stability of the hip. Leg lengths were also felt to be satisfactory. Being satisfied with the prosthesis, attention was directed to closure. Closure was accomplished with 0 Vicryl in the capsular tissues. Piriformis was reattached with 0 Vicryl as well. Tensor fascia enzo was closed with 0 Vicryl in an interrupted fashion. The subcutaneous tissues were closed the combination of 0 Vicryl and 2-0 Monocryl. Vancomycin powder and a Gelfoam thrombin mixture was placed into the wound as well. The skin was closed with a running 3-0 Monocryl followed by Exofin and Steri-Strips. This was covered with Telfa and Tegaderm. The patient was placed in an abduction pillow. She was returned the Recovery Room in a satisfactory condition and will be discharged to the floor for postoperative rehabilitation and pain management. There were no complications. Associated Problem List Diagnoses (1) Primary osteoarthritis of left hip:
[2019-11-04] MEDS: sodium chloride 0.9% 1,000 ML 100 ML IV ×2 (14:14→15:17)
--- NOTE | 2019-11-04 14:26 | SUR.PHASEI ---
0423 PT TO PACU AWAKE CRYING WITH PAIN, WARM BLANKETS TO PT LT HIP DRESSING D/I ABD PILLOW IN PLACE
[2019-11-04] MEDS: fentaNYL 50 mcg/mL INJ 2mL IVP ×2 (14:29→14:38)
[2019-11-04] MEDS: morphine 4 mg/mL SDV 1 mL 2 MG IVP ×4 (14:44→15:13)
--- NOTE | 2019-11-04 15:04 | SUR.PHASEI ---
1340 PT AWAKE ALERT VERBALIZED APPROP HOB FLAT DR MAY AT BEDSIDE BLOOD CHECKED WITH 2 NURSES AND STARTED AT 150ML/HR PT TOLERATING WELL, FIRST ICE TO LT HIP DRESSING D/I BILAT FOOT PUMPS ON , 1400 NS W/O PER DR MAY, X RAY S DONE, PT REMAINS ALERT TALKATIVE WARM BLANKETS TO PT X 4
--- NOTE | 2019-11-04 15:06 | SUR.PHASEI ---
1450 BLOOD IN FUSED AND LINE NOW FLUSHING WITH NS. 1429 PT CRYING WITH PAIN BP BETTER NOW, DR MAY AT BEDSIDE , OK TO GIVE PAIN MEDS SEE MEDS GIVEN 1507 PT TAKING ICE CHIPS VSS NOW, PT STILL RATES PAIN AT 9 SEE PAIN MEDS GIVEN, CARO WITH 275 ML IN CLEAR URINE NOTED.
[2019-11-04] MEDS: HYDROmorphone 1 mg/mL INJ 1 mL 0.5 MG IVP (15:24)
--- NOTE | 2019-11-04 16:19 | SUR.PHASEI ---
1550 PT TO FLOOR PER BED PT STATES PAIN IS IMPROVED AT 6 NOW , BUT WANTS TO KNOW SHE WILL GET HER HOME PAIN MEDS ON FLOOR, NURSE SCARLET RN AT BEDSIDE AND CHECKING FOR PT PT ALERT TALKATIVE ASKING ABOUT FAMILY, AND WANTING TO EAT, DRESSING D/I FIRST ICE TO SITE BP 101/65, HR 75, RESP 18 SATS ON 3LNC 98%. URINE CLEAR YELLOW IN BAG, EARLIER AMT EMPTIED IN PACU AND NURSE AWARE.X RAYS DONE IN PACU
[2019-11-04] MEDS: TRAMadol 50 mg Tablet 100 MG PO (16:21)
[2019-11-04 16:34] LABS: Hemoglobin 11.2 g/dL (11.5-15.3)
[2019-11-04] MEDS: iron polysaccharide complex 150 mg Capsule PO (16:59)
[2019-11-04] MEDS: sennosides-docusate Tablet 2 TAB PO (16:59)
[2019-11-04] MEDS: chlorhexidine gluconate 0.12% Btl 473 mL 30 ML MUCOUS MEM ×2 (16:59→21:39)
[2019-11-04] MEDS: calcium carbonate 500 mg Chew Tablet 1000 MG PO (16:59)
[2019-11-04] MEDS: CELEcoxib 200 mg Capsule PO (17:39)
--- NOTE | 2019-11-04 18:05 | NUR.SHIFT ---
SHIFT SUMMARY PATIENT HAS DONE WELL SINCE ARRIVING TO THE FLOOR FROM THE OR. SHE WAS QUITE ANXIOUS TO START WITH, BUT SETTLED WELL. PAIN APPEARS TO BE CONTROLLED. GOOD URINE OUTPUT. BP STILL SOFT, BUT IMPROVING. SURGICAL DRESSING IS C/D/I. GOOD NEUROVASCULAR CHECKS.
[2019-11-04] MEDS: oxyCODONE 5 mg IR Tab/Cap PO (19:57)
[2019-11-04] MEDS: ropinirole 2 mg Tablet PO (21:41)
[2019-11-05] VITALS (42 sets, daily range): BP systolic 61–105; BP diastolic 35–64; PULSE 51–84; RESP 15–27; TEMP 36.4–36.9; O2SAT 93–99
[2019-11-05] MEDS: oxyCODONE 5 mg IR Tab/Cap PO ×2 (01:02→19:46)
[2019-11-05 05:28] LABS: Basophils % 0.1 %; Hematocrit 29.8 % (37.0-47.0); Hemoglobin 9.9 g/dL (11.5-15.3); Lymphocytes # 1.3 10^3/uL (0.8-4.8); Lymphocytes % 13.2 %; Mean Corpuscular HGB Conc 33.2 g/dL (30.0-36.0); Mean Corpuscular Hemoglobin 31.6 pg (28.0-34.0); Mean Corpuscular Volume 95.2 fL (81-99); Mean Platelet Volume 10.3 fL (7.4-10.4); Monocytes # 0.9 10^3/uL (0.2-0.9); Monocytes % 8.7 %; Neutrophils # 7.6 10^3/uL (1.8-7.7); Neutrophils % 77.6 %; Nucleated Red Blood Cells % 0 %; Platelet Count 187 10^3/cmm (130-400); Red Blood Count 3.13 10^6/uL (4.1-5.3); Red Cell Distribution Width 12.5 % (12.1-15.1); White Blood Count 9.8 10^3/uL (4.0-10.0)
[2019-11-05 05:53] LABS: Anion Gap 12.2 (5-19); Blood Urea Nitrogen 9 mg/dL (6-20); Calcium 8.3 mg/dL (8.5-10.5); Carbon Dioxide 20 mmol/L (22-29); Chloride 105 mmol/L (98-107); Glucose 122 mg/dL (65-115); Osmolality Calculated 273 mOsm/kg (285-295); Potassium 4.2 mmol/L (3.5-5.1); Sodium 133 mmol/L (136-145)
[2019-11-05] MEDS: sodium chloride 0.9% 1,000 ML 999 ML IV ×2 (06:49→10:51)
[2019-11-05 07:03] LABS: Hemoglobin 9.9 g/dL (11.5-15.3)
[2019-11-05] MEDS: sodium chloride 0.9% 1,000 ML 30 ML IV (08:10)
[2019-11-05] MEDS: calcium carbonate 500 mg Chew Tablet 1000 MG PO ×2 (08:11→17:30)
[2019-11-05] MEDS: cholecalciferol (vitamin D3) 1,000 unit Tablet 1000 UNIT PO (08:11)
[2019-11-05] MEDS: multivitamin therapeutic Tablet 1 TAB PO (08:12)
[2019-11-05] MEDS: sennosides-docusate Tablet 2 TAB PO ×2 (08:12→17:30)
[2019-11-05] MEDS: iron polysaccharide complex 150 mg Capsule PO ×2 (08:12→17:30)
[2019-11-05] MEDS: duloxetine 30 mg Capsule PO (08:12)
[2019-11-05] MEDS: aspirin 325 mg EC Tablet PO (08:12)
[2019-11-05] MEDS: CELEcoxib 200 mg Capsule PO ×2 (08:16→19:48)
[2019-11-05] MEDS: chlorhexidine gluconate 0.12% Btl 473 mL 30 ML MUCOUS MEM ×3 (08:19→17:31)
--- NOTE | 2019-11-05 10:22 | ECG_ITS ---
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 Measurements Intervals [place] Rate: 62 P: 10 MI: 151 QRS: -8 QRSD: 105 T: 14 QT: 406 QTc: 414 Interpretive Statements SINUS RHYTHM MINIMAL VOLTAGE CRITERIA FOR LVH, CONSIDER NORMAL VARIANT Compared to ECG 06/06/2019 12:06:04 No significant changes Electronically Signed On 11-05-2019 17:08:26 CDT by Janki Clinton M.D. [id number]
--- NOTE | 2019-11-05 10:27 | PC.CHAP ---
Pastoral Care Encounter/Spiritual Assessment Type of Contact [] Declined inbound call center agent visit [] Patient/Family/Request visit [] Outpatient visit [] Follow-up visit [] Physician referral [] Code/Alert [x] Routine visit [] Staff referral [] Actively dying [] Patient sleeping [] Family support [] [] Out of room [] Palliative care [] [] Receiving care in room [] Pre-surgical visit [] Trauma [] Long length of stay [] ICU visit [] Other: Relational/Emotional Strength [] Patient feels connected with others/family/visitors/staff [] Distress [] Loneliness/isolation [] Abandonment Spirituality of Patient [] Person of Tracie [] Attends Uatsdin of their Tracie [] Believes in Prayer [] Reads Bible or Alevism materials [] There are Spiritual issues to be addressed Process Mechanic Interventions [x] Prayer [x] Active listening [x] Non-anxious presence [x] Spiritual/emotional support [] Crisis/trauma care [] Spiritual counseling [] Bereavement support [] Provided bereavement packet [] Provided Bible/devotional materials [] Provided toy/stuffed animal, coloring book to patient or family member [] Provided Communion [] Anointing/[place] [] Salvation [x] Completed spiritual assessment [] Other: Impact on Illness or Injury [] Angry [] Fearful [] Anxious [] Often cries [] Exhaustion [] Unable to work [] Unable to attend scientology [] Unable to walk/stand [] Unable to read [] Unable to drive [] Unable to eat/drink [] Unable to sleep [] Unable to be with family [] Patient intubated [] Other: Summary Hip replacement. Patient feeling strong- setting up in chair. Time spent with patient 10 min
--- NOTE | 2019-11-05 10:29 | ANE.PACU2 ---
Inpatient post-anesthesia follow up: Airway intact: Yes Vital signs: Temperature 97.6 F Pulse Rate 84 Respiratory Rate 18 Blood Pressure 92/57 Pulse Oximetry 96 Oxygen Delivery Me thod Room Air Oxygen Flow Rate 0.5 Fraction of Inspir ed Oxygen Hydration adequate: Yes Nausea and vomiting: No Pain level: 7 Mental status: Baseline
--- NOTE | 2019-11-05 10:36 | PM.PN ---
Subjective Subjective: Interval history: Patient is doing well with regard to her level of pain. She has minimal to no complaints. She has had a low blood pressure, but she denies symptoms related to this. Medications: Reviewed: Yes Vitals/I&O/Wt Last Vital Signs Temp 97.6 F 11/05/19 07:57 Pulse 84 11/05/19 08:29 Resp 18 11/05/19 08:29 BP 92/57 11/05/19 08:23 Pulse Ox 96 11/05/19 08:29 11/04/19 11/05/19 11/05/19 22:59 06:59 14:59 Intake Total 1940 / 4850 460 / 5310 536.5 / 536.5 Output Total 1675 / 3675 1250 / 4925 Balance 265 / 1175 -790 / 385 536.5 / 536.5 Physical Exam Const: COMMON NORMALS: no acute distress, average body habitus, patient oriented x3 and alert GENERAL APPEARANCE: cooperative and comfortable ORIENTATION/CONSCIOUSNESS: Yes awake HENMT: COMMON NORMALS: normocephalic and atraumatic HEAD & SCALP: normocephalic and atraumatic Eye: GENERAL EYE: appearance normal, both eyes and all related structures Chest: COMMONS NORMALS: normal inspection of the chest Resp: COMMON NORMALS: normal respiratory effort EFFORT & INSPECTION: Yes able to speak in complete sentences and Yes symmetric chest movement Extremity: GENERAL: Yes normal exam except as noted LEFT LOWER EXTREMITY: Yes hip joint Left hip: Yes inspection (Patient's wound is evaluated. There is no evidence of drainage or infection. Her thigh is soft and nontender to palpation.) and Yes neurovascular exam (Intact distal to the fracture site.) Neuro: COMMON NORMALS: patient oriented x3 SENSORIUM/ORIENTATION: Yes alert Psych: COMMON NORMALS: mental status grossly normal APPEARANCE: Yes grossly normal ATTITUDE: Yes calm and Yes engaged ATTENTION/CONCENTRATION: Yes attention grossly intact Skin: COMMON NORMALS: no rashes or lesions noted GENERAL SKIN EXAM: no rashes or lesions noted Urinary Catheter Management^: F: Cath Placed During This Visit: yes, but has since been removed by the nurse Reason for Continuing Indwelling Catheter: Required Immobilization for Trauma or Surgery or Anesthesia Urinary Catheter Date of Insertion: 11/04/19 Urinary Catheter Time of Insertion: 11:15 Date Urinary Catheter Removed: 11/05/19 Time Urinary Catheter Discontinued: 05:34 Data : 11/05/19 06:51 11/05/19 05:15 A&P Assessment and plan (1) History of total left hip arthroplasty: The patient was admitted to the hospital for left same-day total hip arthroplasty. She had this yesterday, and during the surgery, she did have significant bleeding. She received albumin and 1 unit of packed red blood cells secondary to a decrease in her blood pressure. The patient's H&H has stabilized, however, it is still lower than upon admission. Her blood pressures are still soft . Hospitalist team was consulted, Dr. Sanford. Dr. Sanford has evaluated the patient and a H/H is pending for this afternoon. We will have the patient continue to work with physical therapy. She is cautioned about her blood pressure with regard to this physical therapy. Plans are that she will remain for an additional night to evaluate her CBC in the morning and also to monitor her blood pressures more closely. Status: Acute (2) Primary osteoarthritis of left hip: Status: Acute Attestations Medical Necessity Statement*: Patient requires inpatient hospitalization secondary to a decreased blood pressure following total hip arthroplasty. She will require monitoring closely to ensure resolution of this issue. Coding Level of Care Code Acute Hydrometallurgical Engineer for Isabel Thrasher Diagnoses History of total left hip arthroplasty Z96.642 Primary osteoarthritis of left hip M16.12
--- NOTE | 2019-11-05 11:52 | PM.CONSULT ---
Providers/Reason For Consult Consulting Physican/Specialty*: Dr. Sanford, hospitalist Reason for Consult*: Hypotension Attending Physician: Alexia Calix MD Primary Care Provider: Liss Hughes History of Present Illness History of Present Illness Nicolasa Phelps is a 54 year old female that presented to the hospital for left total hip arthroplasty. Patient reports that she was feeling well prior to surgery other than hip pain. She denies any recent illness, no fevers or chills. Patient states that she had recently had bariatric surgery in May, has been recovering and doing well. She stated that she was recently started on some medication for bipolar and anxiety. Patient was noted to be hypotensive in the postoperative setting as well as noted to have moderate amount of blood loss during the procedure. She was given 1 unit of packed red blood cells and then moved to the medical floor. Consulted this morning due to patient having hypotension. She is not on any blood pressure medications, uncertain of her baseline blood pressure readings. She is hypotensive with a regular rate, not tachycardic and otherwise asymptomatic at time of exam this morning. Called by nurse due to patient then developing nausea. Repeat H&H was ordered and nurse placed for patient to go to the ICU after no improvement to blood pressure with IV fluids. Review of Systems Const: Denies: fever(s) or chills Eyes: Denies: change in vision ENMT: Denies: nasal congestion Card: Denies: chest pain, palpitations or edema Resp: Denies: dyspnea, productive cough or hemoptysis GI: Denies: abdominal pain, nausea, vomiting, diarrhea, constipation, hematochezia or melena : Denies: dysuria or hematuria Musc: Reports: extremity pain (Postoperative pain); Denies: muscle cramps Skin/Breast: Denies: rash or new lesions Neuro: Denies: headache(s) or dizziness Psych: Denies: anxiety or depression Endo: Denies: polyuria or hot flashes Lb/Lymph: Denies: easy bruising or easy bleeding Meds/Allergies Home Medications and Allergies Home Medications Medication Instructions Recorded Confirmed Last Taken Type Combivent Respimat 18 - 103 spray INHALATION BID PRN 06/02/19 11/04/19 06/02/19 History fluticasone propion-salmeterol 250 inh INHALATION BID 06/02/19 11/04/19 Unknown History [Advair Diskus] duloxetine 30 mg capsule,delayed 30 mg PO DAILY #30 cap 10/24/19 11/04/19 11/02/19 Rx release hydrocodone 7.5 mg-acetaminophen 7.5 tab PO QID PRN tab 10/24/19 11/04/19 11/03/19 History 325 mg tablet yfrhrrzxqkbk-Fv-fihj-minerals 1 tab PO DAILY tab 10/24/19 11/04/19 Unknown History pediatric multivitamin 1 tab PO QAM 10/24/19 11/04/19 Unknown History ropinirole 2 mg tablet 2 mg PO .HS #30 tab 10/24/19 11/04/19 11/03/19 Rx vitamin C 50 mg-biotin 1,250 mcg 1 tab PO DAILY tab 10/24/19 11/04/19 11/03/19 History chewable tablet Bactrim DS 800 mg-160 mg tablet 1 tab PO BID 10 Days #20 tab NS 11/03/19 11/04/19 11/03/19 Rx Allergies Allergy/AdvReac Type Severity Reaction Status Date / Time codeine AdvReac Intermediate ADR-Itching Verified 10/30/19 10:53 Current Medications Current Medications Generic Name Dose Route Start Last Admin Trade Name Freq PRN Reason Stop Dose Admin Aspirin 325 mg 11/05/19 09:00 11/05/19 08:12 Aspirin Ec PO 325 mg DAILY PIERRE Administration Calcium Carbonate 1,000 mg 11/04/19 18:00 11/05/19 08:11 Tums PO 1,000 mg BID PIERRE Administration Celecoxib 200 mg 11/04/19 19:00 11/05/19 08:16 Celebrex PO 200 mg Q12H PIERRE Administration Chlorhexidine Gluconate 30 ml 11/04/19 17:00 11/05/19 08:19 Perigard MUCOUS MEM 30 ml QID PIERRE Administration Duloxetine HCl 30 mg 11/05/19 09:00 11/05/19 08:12 Cymbalta PO 30 mg DAILY PIERRE Administration Sodium Chloride 1,000 mls @ 30 mls/hr 11/04/19 18:30 11/05/19 08:10 Sodium Chloride 0.9% IV 30 mls/hr .Q24H PIERRE Administration Multivitamins Therapeutic 1 tab 11/05/19 09:00 11/05/19 08:12 Multivitamin Tab PO 1 tab DAILY PIERRE Administration Non-Formulary Medication 1 tab 11/05/19 09:00 11/05/19 08:13 Khwkbutrkuit-Kp-Nvcx-Minerals PO Not Given DAILY PIERRE Non-Formulary Medication 1 tab 11/05/19 06:00 11/05/19 05:30 Pediatric Multivitamin [Gummi Bear Multivitamin] PO Not Given QAM PIERRE Non-Formulary Medication 1 tab 11/05/19 09:00 11/05/19 08:13 Vitamin C-Biotin [Baut-Xxgp-Cjiyb (Vit C-Biotin)] PO Not Given DAILY PIERRE Oxycodone HCl 5 mg 11/04/19 15:50 11/05/19 01:02 Oxycodone Ir PO 5 mg Q4H PRN Administration MODERATE PAIN Polysaccharide Iron Complex 150 mg 11/04/19 18:00 11/05/19 08:12 Ferrex PO 150 mg BIDWM PIERRE Administration Ropinirole HCl 2 mg 11/04/19 21:00 11/04/19 21:41 Requip PO 2 mg BEDTIME PIERRE Administration Fluticasone/Salmeterol 1 puff 11/04/19 20:00 11/05/19 08:28 Advair Diskus 250-50 INHALATION 1 puff BID.RESPIRATORY PIERRE Administration Senna/Docusate Sodium 2 tab 11/04/19 18:00 11/05/19 08:12 Senna-S PO 2 tab BID PIERRE Administration Tramadol HCl 100 mg 11/04/19 15:50 11/04/19 16:21 Ultram PO 100 mg Q4H PRN Administration MODERATE TO SEVERE PAIN Vitamin D 1,000 unit 11/05/19 09:00 11/05/19 08:11 Vitamin D3 PO 1,000 unit DAILY PIERRE Administration PFSH Acute PFSH: Medical History (Updated 11/05/19 @ 11:57 by Lupis Sanford DO) Arthritis SPINAL STENOSIS OF LUMBAR REGION Avascular necrosis of bone of left hip Bipolar disorder Fibromyalgia Gastroesophageal reflux Obesity Surgical menopause Surgical History (Updated 11/05/19 @ 11:56 by Lupis Sanford DO) History of gastric surgery Gastric sleeve performed on 06/04/2019 History of hysterectomy History of rotator cuff surgery Family History Denies family history of Anesthesia complication Bleeding disorder Social History Smoking and tobacco status: never smoked Second hand smoke exposure: No Smoking risk assessment/counseling performed?: No Alcohol intake: never Adopted: No Caregiver/support person: Yes Lives independently: Yes Household members: significant other Housing: House Marital status: Single Highest education level completed: High School Graduate service: No Current occupational status: disabled Current occupational exposures/hazards: No Pets and animals: No History of recent travel: No Sexually active: No Current gender identity: Female Tracie/Uatsdin: Quaker Special tracie needs: No Agree to transfusion: No Financial difficulty paying for basics: Decline to Answer Female Reproductive History: Date of last menstrual period: 06/02/09 Vitals/I&O/Wt Last Vital Signs Temp 97.8 F 11/05/19 11:37 Pulse 63 11/05/19 11:37 Resp 18 11/05/19 11:37 BP 72/44 11/05/19 11:37 Pulse Ox 96 11/05/19 11:37 11/04/19 11/05/19 11/05/19 22:59 06:59 14:59 Intake Total 1940 / 4850 460 / 5310 536.5 / 536.5 Output Total 1675 / 3675 1250 / 4925 1025 / 1025 Balance 265 / 1175 -790 / 385 -488.5 / -488.5 Physical Exam Const: COMMON NORMALS: patient oriented x3 and alert GENERAL APPEARANCE: cooperative ORIENTATION/CONSCIOUSNESS: Yes awake, Yes oriented to person, Yes oriented to place and Yes oriented to time HENMT: COMMON NORMALS: normocephalic and atraumatic HEAD & SCALP: normocephalic and atraumatic Eye: COMMON NORMALS: Equal, round and reactive pupils present PUPIL: Yes Equal, round and reactive pupils present Neck/C-Spine: COMMON NORMALS: supple GENERAL: Yes normal visual inspection Resp: COMMON NORMALS: normal respiratory effort and clear to auscultation bilaterally EFFORT & INSPECTION: Yes able to speak in complete sentences AUSCULTATION: clear to auscultation bilaterally, no rhonchi and no wheezes Cardio: COMMON NORMALS: regular rate, regular rhythm and No murmurs present (Cardio) RATE: regular rate RHYTHM: regular rhythm GI: COMMON NORMALS: Soft to palpation and non-tender INSPECTION: No abdominal distension AUSCULTATION: Yes normoactive bowel sounds PALPATION: Yes Soft to palpation Extremity: COMMON NORMALS: no clubbing, cyanosis or edema and no calf tenderness NARRATIVE EXTREMITY EXAM: Postoperative changes to the hip, left Neuro: COMMON NORMALS: patient oriented x3, CN's II-XII intact bilaterally, moves all extremities and no focal motor deficits SENSORIUM/ORIENTATION: Yes alert, Yes oriented to person, Yes oriented to place and Yes oriented to time SPEECH: speech normal Psych: COMMON NORMALS: mental status grossly normal and cooperative Skin: COMMON NORMALS: no rashes or lesions noted GENERAL SKIN EXAM: no rashes or lesions noted Urinary Catheter Management^: F: Cath Placed During This Visit: yes, but has since been removed by the nurse Reason for Continuing Indwelling Catheter: Required Immobilization for Trauma or Surgery or Anesthesia Urinary Catheter Date of Insertion: 11/04/19 Urinary Catheter Time of Insertion: 11:15 Date Urinary Catheter Removed: 11/05/19 Time Urinary Catheter Discontinued: 05:34 A&P Assessment and plan (1) History of total left hip arthroplasty: Postoperative management per Dr. Calix Status: Acute (2) Hypotension: Patient remains hypotensive despite 2 L normal saline bolus Transfer to ICU, transfuse 1 unit of packed red blood cells and consider pressors if remains hypotensive with map less than 65 Patient is not on any antihypertensives Is not tachycardic We will check lactic acid Status: Acute (3) Borderline personality disorder: Status: Acute (4) S/P laparoscopic sleeve gastrectomy: Status: Acute (5) Anemia: Postoperative anemia with hemoglobin of 9.9 Due to patient remaining hypotensive will transfuse 1 unit of packed red blood cells and transferred to the ICU if patient remains hypotensive despite transfusion will start on pressors Status: Acute Consult Attestations Medical Necessity Statement: Patient requires further hospitalization due to postoperative hypotension Coding Level of Care Code Acute Paradichlorobenzene Machine Operator for g Fwd Exam Comprehensive Diagnoses History of total left hip arthroplasty Z96.642 Hypotension I95.9 Borderline personality disorder F60.3 S/P laparoscopic sleeve gastrectomy Z98.84 Anemia D64.9
[2019-11-05] MEDS: ondansetron 2 mg/ML SDV 2 mL 4 MG IVP (11:53)
--- NOTE | 2019-11-05 12:02 | ECG_ITS ---
[facility] Test Date: 2019-11-05 Pat Name: Nicolasa Phelps Department: Room: 262 Gender: Female Flight Communications Operator: : 1965 Requested By: Lupis Sanford Order Number: [id number] Reed MD: Janki Clinton M.D. Measurements Intervals Eva Rate: 63 P: 25 OH: 150 QRS: -7 QRSD: 114 T: 14 QT: 392 QTc: 403 Interpretive Statements SINUS RHYTHM MODERATE INTRAVENTRICULAR CONDUCTION DELAY MINIMAL VOLTAGE CRITERIA FOR LVH, CONSIDER NORMAL VARIANT NONSPECIFIC T-WAVE ABNORMALITY Compared to ECG 11/05/2019 10:31:45 Intraventricular conduction delay now present T-wave abnormality now present Electronically Signed On 11-05-2019 17:06:42 CDT by Janki Clinton M.D. [email or web address]
[2019-11-05] MEDS: sodium chloride 0.9% (100 ml) 100 ML (13:00)
--- NOTE | 2019-11-05 14:02 | ECG_ITS ---
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 Measurements Intervals [place] Rate: 65 P: 19 IN: 140 QRS: -4 QRSD: 106 T: 13 QT: 403 QTc: 419 Interpretive Statements SINUS RHYTHM MODERATE VOLTAGE CRITERIA FOR LVH, CONSIDER NORMAL VARIANT NONSPECIFIC T-WAVE ABNORMALITY Compared to ECG 11/05/2019 13:11:59 Intraventricular conduction delay no longer present T-wave abnormality still present Electronically Signed On 11-05-2019 21:53:03 CDT by Janki Clinton M.D. [id number]
[2019-11-05 16:21] LABS: Folate Level 16.4 ng/mL (4.8-37.3); Vitamin B12 234 pg/mL (232-1245)
[2019-11-05 16:55] LABS: Basophils % 0.1 %; Eosinophils % 0.4 %; Hematocrit 32.4 % (37.0-47.0); Hemoglobin 10.6 g/dL (11.5-15.3); Lymphocytes % 22.7 %; Mean Corpuscular HGB Conc 32.7 g/dL (30.0-36.0); Mean Corpuscular Hemoglobin 30.5 pg (28.0-34.0); Mean Corpuscular Volume 93.1 fL (81-99); Mean Platelet Volume 10.4 fL (7.4-10.4); Monocytes # 0.9 10^3/uL (0.2-0.9); Monocytes % 9.7 %; Neutrophils % 66.8 %; Nucleated Red Blood Cells % 0 %; Platelet Count 165 10^3/cmm (130-400); Red Blood Count 3.48 10^6/uL (4.1-5.3); Red Cell Distribution Width 13.2 % (12.1-15.1); White Blood Count 8.9 10^3/uL (4.0-10.0)
[2019-11-05 17:23] LABS: Lactic Sepsis W/Reflex 1.2 mmol/L (0.5-2.2)
[2019-11-05 17:26] LABS: Alanine Aminotransferase 11 U/L (0-33); Albumin Level 3.3 g/dL (3.5-5.2); Alkaline Phosphatase 66 IU/L (35-105); Anion Gap 12.8 (5-19); Aspartate Amino Transferase 19 U/L (0-32); Blood Urea Nitrogen 12 mg/dL (6-20); Carbon Dioxide 19 mmol/L (22-29); Chloride 109 mmol/L (98-107); Globulin 2.4 g/dL (1.3-4.6); Glucose 101 mg/dL (65-115); Osmolality Calculated 280 mOsm/kg (285-295); Potassium 3.8 mmol/L (3.5-5.1); Sodium 137 mmol/L (136-145); Total Bilirubin 0.5 mg/dL (0.15-1.2); Total Protein 5.7 g/dL (6.6-8.7)
[2019-11-05 17:30] LABS: Troponin(5th) Baseline 6 ng/L (0-10)
[2019-11-05] MEDS: acetaminophen 500 mg Tablet 1000 MG PO (17:30)
[2019-11-05] MEDS: TRAMadol 50 mg Tablet 100 MG PO (17:37)
[2019-11-05 19:24] LABS: Troponin 5 2HR Delta 0 ABS# (0-10)
[2019-11-05] MEDS: ropinirole 2 mg Tablet PO (20:38)
[2019-11-05] MEDS: HYDROmorphone 1 mg/mL INJ 1 mL IVP (21:44)
--- NOTE | 2019-11-05 22:49 | PC.NURSE ---
Shift report received from EMILIA Herrera. Pt began complaining to nurse upon introduction at the beginning of the shift. Pt continued to complain and wiggle both legs in bed. She stated she needed her requip. This med was due at 2099, but itwas only 193. Celebrex was given along with oxycodone. Pt calmed down a bit, but continued to moan. at 2029, requip was given. Pt continued to wiggle her legs. Dr. Paniagua was notified and 1 mg dilaudid was ordered. This dose seems to have helped as pt is not moaning anymore.
[2019-11-05 23:18] LABS: Troponin 5 6HR Delta 0 ng/L (0-12)
[2019-11-06] VITALS (29 sets, daily range): BP systolic 80–106; BP diastolic 52–69; PULSE 63–81; RESP 16–31; TEMP 36–36.6; O2SAT 81–99
[2019-11-06] MEDS: acetaminophen 500 mg Tablet 1000 MG PO ×2 (00:04→08:57)
[2019-11-06] MEDS: HYDROmorphone 1 mg/mL INJ 1 mL IVP ×2 (00:05→02:52)
[2019-11-06] MEDS: sodium chloride 0.9% 1,000 ML 30 ML IV (02:45)
--- NOTE | 2019-11-06 03:49 | PC.NURSE ---
Pt continues to c/o leg pain possibly r/t restless legs anytime nurse rounds into pt room. Pt has been educated that IV pain medicine needs to be switched to oral pain medicine in order for her to be d/c. Pt states she will try PO pain medicine the next time
[2019-11-06 04:54] LABS: Basophils % 0.5 %; Eosinophils # 0.3 10^3/uL (0.0-0.8); Eosinophils % 3.4 %; Hematocrit 30.8 % (37.0-47.0); Hemoglobin 10.2 g/dL (11.5-15.3); Lymphocytes # 2.8 10^3/uL (0.8-4.8); Mean Corpuscular HGB Conc 33.1 g/dL (30.0-36.0); Mean Corpuscular Hemoglobin 31.2 pg (28.0-34.0); Mean Corpuscular Volume 94.2 fL (81-99); Mean Platelet Volume 10.7 fL (7.4-10.4); Monocytes # 0.7 10^3/uL (0.2-0.9); Monocytes % 8.3 %; Neutrophils # 4.2 10^3/uL (1.8-7.7); Neutrophils % 52.5 %; Nucleated Red Blood Cells % 0 %; Platelet Count 156 10^3/cmm (130-400); Red Blood Count 3.27 10^6/uL (4.1-5.3); Red Cell Distribution Width 13.7 % (12.1-15.1); White Blood Count 7.9 10^3/uL (4.0-10.0)
[2019-11-06] MEDS: oxyCODONE 5 mg IR Tab/Cap PO (05:00)
--- NOTE | 2019-11-06 05:19 | PC.NURSE ---
Pt asked for pain medicine again at 0500. Nurse suggested oral pain medicine (oxycodone). Pt stated oral medicines hurt my stomach because I had that surgery (surgery referring to gastric bypass). Nurse educated pt once again that PO pain meds would need to be taken in order to be discharged. Pt agreed to try oral pain medicine.
--- NOTE | 2019-11-06 07:33 | CTR_ITS ---
PROCEDURE INFORMATION: Exam: CT Angiography Chest With Contrast Exam date and time: 11/06/2019 7:48 AM Age: 54 years old Clinical indication: Patient HX: Shortness of breath after hip surgery 2 days ago; Additional info: Postoperative shortness of breath, hypotension TECHNIQUE: Imaging protocol: Computed tomographic angiography of the chest with intravenous contrast. 3D rendering: MIP and/or 3D reconstructed images were created by the technologist. Radiation optimization: All CT scans at this facility use at least one of these dose optimization techniques: automated exposure control; mA and/or kV adjustment per patient size (includes targeted exams where dose is matched to clinical indication); or iterative reconstruction. Contrast material: OMNIPAQUE 350; Contrast volume: 73 ml; Contrast route: INTRAVENOUS (IV); COMPARISON: CR Chest 1 [place] [id number] 07/29/2018 2:58 PM RADIATION DOSE METRICS: Total DLP (mGy-cm): 510.89 FINDINGS: Pulmonary arteries: Normal. No pulmonary emboli. Aorta: Unremarkable. No aortic aneurysm. No aortic dissection. Lungs: There is a 6 mm nodule within the left upper lobe with a suspected internal punctate calcification, potentially hamartoma. There are bibasilar dependent opacities, right greater than left, suggestive of atelectasis. Pleural space: Unremarkable. No pneumothorax. No pleural effusion. Heart: Unremarkable. No cardiomegaly. No pericardial effusion. Lymph nodes: Unremarkable. No enlarged lymph nodes. Bones/joints: Unremarkable. No acute fracture. Soft tissues: Unremarkable. CT/CT angio chest PE protcl [id number] IMPRESSION: 1. No pulmonary embolism. 2. Bibasilar atelectasis. 3. Isolated 6 mm left upper lobe nodule with a questionable internal punctate calcification. Per Fleischner society pulmonary nodule recommendations, in a low risk patient, follow-up CT chest at 6-12 months and possibly at 18-24 months is recommended. Radiation Dose CTDIVOL = (mGy): DLP = 510.89 (mGy-cm)
--- NOTE | 2019-11-06 08:38 | PC.NURSE ---
Addendum entered by Kaitlyn Chambers RN 11/06/19 08:39: patient denies pain at this time last dose of dilaudid given at 0252 Original Note: patient Hypertensive at this time asymptomatic Dr Sanford notified orders to Dc dilaudid now
[2019-11-06] MEDS: sennosides-docusate Tablet 2 TAB PO (08:56)
[2019-11-06] MEDS: multivitamin therapeutic Tablet 1 TAB PO (08:56)
[2019-11-06] MEDS: aspirin 325 mg EC Tablet PO (08:56)
[2019-11-06] MEDS: iron polysaccharide complex 150 mg Capsule PO (08:56)
[2019-11-06] MEDS: duloxetine 30 mg Capsule PO (08:56)
[2019-11-06] MEDS: cholecalciferol (vitamin D3) 1,000 unit Tablet 1000 UNIT PO (08:56)
[2019-11-06] MEDS: chlorhexidine gluconate 0.12% Btl 473 mL 30 ML MUCOUS MEM (08:57)
[2019-11-06] MEDS: calcium carbonate 500 mg Chew Tablet 1000 MG PO (08:57)
--- NOTE | 2019-11-06 09:10 | PC.NURSE ---
spoke with Dr Sanford about NPO status and medications Dr Sanford okayed for patient medications to be given
--- NOTE | 2019-11-06 09:48 | PC.NURSE ---
Pt with patient at this time
--- NOTE | 2019-11-06 10:05 | PC.NURSE ---
patient ambulating in [place] with PT; tolerating well .
--- NOTE | 2019-11-06 10:42 | PC.OT ---
OT TREATMENT HELD DUE TO TESTING FOR PE TODAY. WILL ATTEMPT AGAIN TOMORROW.
--- NOTE | 2019-11-06 11:35 | PM.PN ---
Subjective Subjective: Interval history: Patient sitting in the chair at time of exam this morning. Blood pressure improved. Denies any chest pain or shortness of breath. Did have increased pain overnight required increasing pain medication. Medications: Reviewed: Yes Vitals/I&O/Wt Last Vital Signs Temp 97.9 F 11/06/19 08:30 Pulse 76 11/06/19 10:00 Resp 18 11/06/19 10:00 BP 97/61 11/06/19 10:00 Pulse Ox 95 11/06/19 09:45 11/05/19 11/06/19 11/06/19 22:59 06:59 14:59 Intake Total 3025 / 3561.5 925 / 4486.5 120 / 120 Output Total 1100 / 2125 1400 / 3525 Balance 1925 / 1436.5 -475 / 961.5 120 / 120 Physical Exam Const: COMMON NORMALS: patient oriented x3 and alert GENERAL APPEARANCE: cooperative ORIENTATION/CONSCIOUSNESS: Yes awake, Yes oriented to person, Yes oriented to place and Yes oriented to time HENMT: COMMON NORMALS: normocephalic and atraumatic HEAD & SCALP: normocephalic and atraumatic Eye: COMMON NORMALS: Equal, round and reactive pupils present PUPIL: Yes Equal, round and reactive pupils present Neck/C-Spine: COMMON NORMALS: supple GENERAL: Yes normal visual inspection Resp: COMMON NORMALS: normal respiratory effort and clear to auscultation bilaterally EFFORT & INSPECTION: Yes able to speak in complete sentences AUSCULTATION: clear to auscultation bilaterally, no rhonchi and no wheezes Cardio: COMMON NORMALS: regular rate, regular rhythm and No murmurs present (Cardio) RATE: regular rate RHYTHM: regular rhythm GI: COMMON NORMALS: Soft to palpation and non-tender INSPECTION: No abdominal distension AUSCULTATION: Yes normoactive bowel sounds PALPATION: Yes Soft to palpation Extremity: COMMON NORMALS: no clubbing, cyanosis or edema and no calf tenderness NARRATIVE EXTREMITY EXAM: Postoperative changes to the hip, left Neuro: COMMON NORMALS: patient oriented x3, CN's II-XII intact bilaterally, moves all extremities and no focal motor deficits SENSORIUM/ORIENTATION: Yes alert, Yes oriented to person, Yes oriented to place and Yes oriented to time SPEECH: speech normal Psych: COMMON NORMALS: mental status grossly normal and cooperative Skin: COMMON NORMALS: no rashes or lesions noted GENERAL SKIN EXAM: no rashes or lesions noted Urinary Catheter Management^: F: Cath Placed During This Visit: yes, but has since been removed by the nurse Reason for Continuing Indwelling Catheter: Accurate Measurement of Urinary Output in Critically Ill Patients Urinary Catheter Date of Insertion: 11/04/19 Urinary Catheter Time of Insertion: 11:15 Date Urinary Catheter Removed: 11/05/19 Time Urinary Catheter Discontinued: 05:34 Data : 11/06/19 04:20 11/05/19 16:40 A&P Assessment and plan (1) History of total left hip arthroplasty: Postoperative management per Dr. Calix Status: Acute (2) Hypotension: Status post 2 units of packed red blood cells Blood pressure improved today, however slightly hypotensive likely from Dilaudid overnight We will continue to hold any heavily sedating medication and continue with oral pain control. Elevated d-dimer therefore CTA of the chest ordered for further evaluation Patient did not require pressors overnight Status: Acute (3) Borderline personality disorder: Status: Acute (4) S/P laparoscopic sleeve gastrectomy: Status: Acute (5) Anemia: Postoperative anemia status post 2 units of packed red blood cells Status: Acute Attestations Medical Necessity Statement*: Hospitalization status post total hip arthroplasty with postoperative hypotension Coding Level of Care Code Acute Solar Energy System Installer for Isabel Fwchristelle Diagnoses History of total left hip arthroplasty Z96.642 Hypotension I95.9 Borderline personality disorder F60.3 S/P laparoscopic sleeve gastrectomy Z98.84 Anemia D64.9
[2019-11-06] MEDS: iohexol 350 mg/mL 100 mL Btl IV (12:40)
--- NOTE | 2019-11-06 13:15 | PM.PN ---
Subjective Subjective: Interval history: Patient is seen in the she was transferred blood pressure issues. She has been treated by the hospitalist service for this. She has stabilized and is doing much better. She does complain of knee pain. I discussed her with Dr. Sanford, we will plan discharge home and is felt that she is stable. Medications: Reviewed: Yes Vitals/I&O/Wt Last Vital Signs Temp 97.9 F 11/06/19 08:30 Pulse 76 11/06/19 10:00 Resp 18 11/06/19 10:00 BP 97/61 11/06/19 10:00 Pulse Ox 95 11/06/19 09:45 11/05/19 11/06/19 11/06/19 22:59 06:59 14:59 Intake Total 3025 / 3561.5 925 / 4486.5 120 / 120 Output Total 1100 / 2125 1400 / 3525 Balance 1925 / 1436.5 -475 / 961.5 120 / 120 Physical Exam Const: COMMON NORMALS: no acute distress, average body habitus, patient oriented x3 and alert GENERAL APPEARANCE: cooperative and comfortable ORIENTATION/CONSCIOUSNESS: Yes awake HENMT: COMMON NORMALS: normocephalic and atraumatic HEAD & SCALP: normocephalic and atraumatic Eye: GENERAL EYE: appearance normal, both eyes and all related structures Chest: COMMONS NORMALS: normal inspection of the chest Resp: COMMON NORMALS: normal respiratory effort EFFORT & INSPECTION: Yes able to speak in complete sentences and Yes symmetric chest movement Extremity: GENERAL: Yes normal exam except as noted LEFT LOWER EXTREMITY: Yes hip joint Left hip: Yes inspection (The hip has minimal erythema. There is no evidence of infection. There is no drainage. She is minimally tender to palpation.), Yes ROM (Not assessed.) and Yes neurovascular exam (Intact with no obvious evidence of DVT.) and Yes knee joint (Patient complains of left knee pain. There is no swelling or erythema about the knee. Most likely, this is secondary to manipulation at the time of surgery.) Neuro: COMMON NORMALS: patient oriented x3 SENSORIUM/ORIENTATION: Yes alert Psych: COMMON NORMALS: mental status grossly normal APPEARANCE: Yes grossly normal ATTITUDE: Yes calm and Yes engaged ATTENTION/CONCENTRATION: Yes attention grossly intact Skin: COMMON NORMALS: no rashes or lesions noted GENERAL SKIN EXAM: no rashes or lesions noted Urinary Catheter Management^: F: Cath Placed During This Visit: yes, but has since been removed by the nurse Reason for Continuing Indwelling Catheter: Accurate Measurement of Urinary Output in Critically Ill Patients Urinary Catheter Date of Insertion: 11/04/19 Urinary Catheter Time of Insertion: 11:15 Date Urinary Catheter Removed: 11/05/19 Time Urinary Catheter Discontinued: 05:34 Data : 11/06/19 04:20 11/05/19 16:40 A&P Assessment and plan (1) History of total left hip arthroplasty: The patient was transferred to the intensive care unit secondary to blood pressure issues yesterday. She did respond to a unit of packed red blood cells. She did not require pressors overnight, but she was given Dilaudid which resulted in softening of her pressures overnight. I discussed her with Dr. Sanford and we are both hopeful that the patient can be discharged home today provided her pressures and H&H remain stable. Status: Acute (2) Primary osteoarthritis of left hip: Status: Acute Attestations Medical Necessity Statement*: Blood pressure management following total hip arthroplasty. Coding Level of Care Code Acute Data Management Specialist for Isabel Thrasher Diagnoses History of total left hip arthroplasty Z96.642 Primary osteoarthritis of left hip M16.12
--- NOTE | 2019-11-06 13:25 | PC.NURSE ---
patient assisted to wheel chair for a CTA patient reported severe pain in left knee with transfers. Pain is gone with rest however Pt is going to work with her again in a little bit Dr. Sanford notified of findings and instructions to give PRN tramadol noted
[2019-11-06] MEDS: TRAMadol 50 mg Tablet 100 MG PO (13:31)
--- NOTE | 2019-11-06 13:34 | P.DS_ITS ---
Discharge Providers Date of Admission: 11/05/19 10:40 Date of Discharge: November 06, 2019 Attending Provider at Admission: Alexia Calix MD Attending Provider at Discharge: Alexia Calix MD Primary Care Provider: Liss Hughes Diagnoses at Discharge Discharge Diagnosis (1) History of total left hip arthroplasty: Status: Acute (2) Primary osteoarthritis of left hip: Status: Acute (3) Hypotension: Status: Acute (4) Anemia: Status: Acute Reason for Visit Reason for Visit: Brief History: Left total hip arthroplasty Hospital Course Hospital Course: This 54-year-old woman was admitted for left total hip arthroplasty. The patient underwent the following procedure: Left total hip arthroplasty utilizing the following implants from the [place] Accolade II total hip system: The size 50 mm solid back acetabular shell with a D alpha code and an MDM liner size 38 mm inner diameter by D alpha code. An Accolade II size 6 x 132 degree neck angle hip stem, femoral head size 22.2 mm outer diameter and +0 mm offset inside of an MDM insert size inner diameter 22.2 mm to match the 38D. She had same-day surgery with plans for discharge the following day. She became hypotensive while in surgery, and she received packed red blood cells and albumin. Postoperatively, she was sent to the floor under observation. She was stable through the night, but the following morning, she did develop further hypotension. The medical service, Dr. Sanford, was consulted. The patient improved but then had further hypotensive episodes. Subsequently, she was transferred to the intensive care unit after receiving Dilaudid overnight. On the second postoperative day, the patient was seen in the intensive care unit. Her d-dimer had been elevated, but she had a CTA which was negative. In discussion between Dr. Sanford and myself, the patient had remained stable. Chronically, she is on hydrocodone per her pain management contract. It is felt that she can go home on this in a stable fashion. When she was seen in the intensive care unit, her wound was benign. There was no evidence of infection or DVT. There was no significant swelling about the thigh. Discharge Summary: Patient's hospital course is as noted above. She was disc harged to home from the intensive care unit. She will follow-up with me as scheduled. Physical Exam Const: COMMON NORMALS: no acute distress, average body habitus, patient oriented x3 and alert GENERAL APPEARANCE: cooperative and comfortable ORIENTATION/CONSCIOUSNESS: Yes awake HENMT: COMMON NORMALS: normocephalic and atraumatic HEAD & SCALP: normocephalic and atraumatic Eye: GENERAL EYE: appearance normal, both eyes and all related structures Chest: COMMONS NORMALS: normal inspection of the chest Resp: COMMON NORMALS: normal respiratory effort EFFORT & INSPECTION: Yes able to speak in complete sentences and Yes symmetric chest movement Extremity: GENERAL: Yes normal exam except as noted LEFT LOWER EXTREMITY: Yes hip joint Left hip: Yes inspection (Hip is benign. There is no evidence of significant swelling. There is no erythema.), Yes palpation (There is no significant tenderness to palpation.), Yes ROM (Not evaluated.) and Yes neurovascular exam (Intact with no evidence of DVT.) and Yes knee joint (Patient complains of pain in the left knee. There is no swelling or instability.) Neuro: COMMON NORMALS: patient oriented x3 SENSORIUM/ORIENTATION: Yes alert Psych: COMMON NORMALS: mental status grossly normal APPEARANCE: Yes grossly normal ATTITUDE: Yes calm and Yes engaged ATTENTION/CONCENTRATION: Yes attention grossly intact Skin: COMMON NORMALS: no rashes or lesions noted GENERAL SKIN EXAM: no rashes or lesions noted Urinary Catheter Management^: F: Cath Placed During This Visit: yes, but has since been removed by the nurse Reason for Continuing Indwelling Catheter: Accurate Measurement of Urinary Output in Critically Ill Patients Urinary Catheter Date of Insertion: 11/04/19 Urinary Catheter Time of Insertion: 11:15 Date Urinary Catheter Removed: 11/05/19 Time Urinary Catheter Discontinued: 05:34 Discharge Data Data Completed and Pending: Completed Studies During Hospitalization Category Date Time Status CT angio chest PE protcl [id number] Rout ine Cat Scan 11/06/19 07:33 Completed XR pelvis 1-2V* 7 2170 Routine Exams 11/04/19 Completed Pending at discharge Category Date Time Status PRBC [Leukocyte R educed RBC] Stat Lab 11/04/19 12:23 Results Type and Screen S tat Lab 11/04/19 12:23 Results Pathology: Surgic al [PTH] Routine Pth 11/04/19 13:40 Received Labs from last 24 hours 11/06/19 11/05/19 11/05/19 04:20 22:56 18:40 WBC 7.9 RBC 3.27 L Hgb 10.2 L Hct 30.8 L MCV 94.2 MCH 31.2 MCHC 33.1 RDW 13.7 Plt Count 156 MPV 10.7 H Neut % (Auto) 52.5 Lymph % (Auto) 35.0 [place] % (Auto) 8.3 Eos % (Auto) 3.4 Baso % (Auto) 0.5 Neut # (Auto) 4.2 Lymph # (Auto) 2.8 [place] # (Auto) 0.7 Eos # (Auto) 0.3 Baso # (Auto) 0.0 Nucleated RBC % (a uto) 0 Nucleated RBCs # 0.0 D-Dimer Sodium Potassium Chloride Carbon Dioxide Anion Gap BUN Creatinine GFR Calculation Glucose Calculated Osmolal ity Lactic Acid Calcium Total Bilirubin AST ALT Alkaline Phosphata se Troponin I 6 Hour 6.00 Troponin I Hi Sens Del 0 Troponin T Baselin e Troponin T 120 Min [place] 6.00 Delta Troponin T 0 Total Protein Albumin Globulin Vitamin B12 Folate Crossmatch 11/05/19 11/05/19 11/05/19 16:40 16:40 16:40 WBC RBC Hgb Hct MCV MCH MCHC RDW Plt Count MPV Neut % (Auto) Lymph % (Auto) [place] % (Auto) Eos % (Auto) Baso % (Auto) Neut # (Auto) Lymph # (Auto) [place] # (Auto) Eos # (Auto) Baso # (Auto) Nucleated RBC % (a uto) Nucleated RBCs # D-Dimer 1.40 H Sodium Potassium Chloride Carbon Dioxide Anion Gap BUN Creatinine GFR Calculation Glucose Calculated Osmolal ity Lactic Acid 1.2 Calcium Total Bilirubin AST ALT Alkaline Phosphata se Troponin I 6 Hour Troponin I Hi Sens Del Troponin T Baselin e 6 Troponin T 120 Min [place] Delta Troponin T Total Protein Albumin Globulin Vitamin B12 Folate Crossmatch 11/05/19 11/05/19 11/05/19 16:40 16:40 05:15 WBC 8.9 RBC 3.48 L Hgb 10.6 L Hct 32.4 L MCV 93.1 MCH 30.5 MCHC 32.7 RDW 13.2 Plt Count 165 MPV 10.4 Neut % (Auto) 66.8 Lymph % (Auto) 22.7 [place] % (Auto) 9.7 Eos % (Auto) 0.4 Baso % (Auto) 0.1 Neut # (Auto) 6.0 Lymph # (Auto) 2.0 [place] # (Auto) 0.9 Eos # (Auto) 0.0 Baso # (Auto) 0.0 Nucleated RBC % (a uto) 0 Nucleated RBCs # 0.0 D-Dimer Sodium 137 Potassium 3.8 Chloride 109 H Carbon Dioxide 19 L Anion Gap 12.8 BUN 12 Creatinine 0.4 L GFR Calculation 167.0 H Glucose 101 Calculated Osmolal ity 280 L Lactic Acid Calcium 8.0 L Total Bilirubin 0.5 AST 19 ALT 11 Alkaline Phosphata se 66 Troponin I 6 Hour Troponin I Hi Sens Del Troponin T Baselin e Troponin T 120 Min [place] Delta Troponin T Total Protein 5.7 L Albumin 3.3 L Globulin 2.4 Vitamin B12 234 Folate Crossmatch 11/05/19 11/04/19 05:15 12:23 WBC RBC Hgb Hct MCV MCH MCHC RDW Plt Count MPV Neut % (Auto) Lymph % (Auto) [place] % (Auto) Eos % (Auto) Baso % (Auto) Neut # (Auto) Lymph # (Auto) [place] # (Auto) Eos # (Auto) Baso # (Auto) Nucleated RBC % (a uto) Nucleated RBCs # D-Dimer Sodium Potassium Chloride Carbon Dioxide Anion Gap BUN Creatinine GFR Calculation Glucose Calculated Osmolal ity Lactic Acid Calcium Total Bilirubin AST ALT Alkaline Phosphata se Troponin I 6 Hour Troponin I Hi Sens Del Troponin T Baselin e Troponin T 120 Min [place] Delta Troponin T Total Protein Albumin Globulin Vitamin B12 Folate 16.4 Crossmatch See Detail Vitals: Last Vital Signs Temp 97.9 F 11/06/19 08:30 Pulse 76 11/06/19 10:00 Resp 18 11/06/19 10:00 BP 97/61 11/06/19 10:00 Pulse Ox 95 11/06/19 09:45 Discharge Plan Discharge Patient Disposition: Home Health Service Condition: Stable Prescriptions: New tramadol 50 mg Tablet 100 mg PO Q4H PRN (Reason: Moderate To Severe Pain) 5 Days Qty: 20 RF: 0 aspirin 325 mg Tablet,Delayed Release (Dr/Ec) 325 mg PO DAILY 14 Days Qty: 14 RF: 0 celecoxib 200 mg Capsule 200 mg PO Q12H 30 Days Qty: 60 RF: 0 polysaccharide iron complex [Ferrex 150] 150 mg iron Capsule 150 mg PO BIDWM 30 Days Qty: 60 RF: 0 Thera 400 mcg Tablet 1 tab PO DAILY 30 Days Qty: 30 RF: 0 sennosides-docusate sodium 8.6-50 mg Tablet 2 tab PO BID 30 Days Qty: 120 RF: 0 Continued pediatric multivitamin [Gummi Bear Multivitamin] Tablet,Chewable 1 tab PO QAM RF: 0 Zkmv-Alhr-Ledge (vit C-biotin) 50 mg -1,250 mcg tablet,chewable 1 tab PO DAILY RF: 0 dnrhihzdcbvf-Jy-skic-minerals Tablet 1 tab PO DAILY RF: 0 duloxetine [Cymbalta] 30 mg capsule,delayed release(DR/EC) 30 mg PO DAILY Qty: 30 RF: 1 ropinirole 2 mg tablet 2 mg PO .HS Qty: 30 RF: 1 fluticasone propion-salmeterol [Advair Diskus] 250-50 mcg/dose blister with device 250 inh INHALATION BID RF: 0 Combivent Respimat 20-100 mcg/actuation mist 18 - 103 spray INHALATION BID PRN (Reason: Dyspepsia) RF: 0 Discontinued sulfamethoxazole-trimethoprim [Bactrim DS] 800-160 mg tablet 1 tab PO BID 10 Days Qty: 20 RF: 0 hydrocodone-acetaminophen 7.5-325 mg tablet 7.5 tab PO QID PRN (Reason: Pain) RF: 0 Discharge Orders: Discharge Order (Routine); Ordered 11/04/19 Ordered By: Alexia Calix Referrals: Alexia Calix MD [Physician] - 11/24/19 2:15 pm Liss Hughes PA [Primary Care Provider] - 7-10 days Discharge Diet: Advance as tolerated Discharge Activity: Limit activity as instructed, Use walker/crutches as instructed, As per PT/OT instructions and Return to work/school after cleared by PCP/Specialist Activity Restrictions/Additional Instructions: Increase activity as instructed by Dr. Calix, orthopedic surgery Follow-up with primary care provider in 7 to 10 days Follow-up with orthopedic surgery in [address] scan showed pulmonary nodule, incidental finding, recommend follow-up with us in 6 to 12 months, this is to be arranged by your primary care provider. Posterior hip precautions as instructed by physical therapy Discharge Attestations Time Spent in Discharge Care*: greater than 30 min Quality Metrics Clinical Quality Measures During this hospital stay, did patient experience: None Coding Level of Care Code Acute Allocation Analyst for Chg Fwd Exam Comprehensive Diagnoses History of total left hip arthroplasty Z96.642 Primary osteoarthritis of left hip M16.12 Hypotension I95.9 Anemia D64.9
--- NOTE | 2019-11-06 15:18 | PC.NURSE ---
patient discharged home with home health at this time; patient discharge instruction given and explained to patient. patient verbalized understanding of instructions. IVs dc'd with cath intact min bleeding noted dressing placed. all belongings as well as discharge instructions in hand. Patient standby assited to wheel chair and wheeled to ER entrance to Private vehicle.
== END 2019-11-06 15:15 | disposition home health service (06) | DRG 470 ==
LOC: OR 13:36 → MEDSURG 16:45 → ICU 11-06 13:33 → MEDSURG 11-07 08:40
PROVIDERS: Family Medicine; Internal Medicine; Admitting Provider Specialist; PCP Physician Assistant; Visit Provider Specialist
PROC: 0SRB0JZ Replacement of Left Hip Joint with Synthetic Substitute, Open Approach (ICD-10-PCS; CPT 27447; principal; 2019-11-04 10:05)
DX: M16.12 Unilateral primary osteoarthritis, left hip (principal); M87.052 Idiopathic aseptic necrosis of left femur; M48.061 Spinal stenosis, lumbar region without neurogenic claudication; F31.9 Bipolar disorder, unspecified; M79.7 Fibromyalgia; K21.9 Gastro-esophageal reflux disease without esophagitis; E66.9 Obesity, unspecified; Z68.33 Body mass index [BMI] 33.0-33.9, adult; Z98.84 Bariatric surgery status; I95.9 Hypotension, unspecified; F60.3 Borderline personality disorder; D64.9 Anemia, unspecified
CPT/HCPCS: 12345; 36415; 36430; 51702; 71275; 72170; 80048; 80053; 81001; 82607; 82746; 83605; 84484; 85014; 85018; 85025; 85378; 86850; 86900; 86920; 87077; 87086; 87186; 88304; 93005; 94640; 96365; 97110; 97116; 97162; 97166; 97530; C1776; G0378; J0131; J0690; J1100; J1170; J2270; J2370; J2405; J2704; J2710; J3010; J3370; J3490; J3535; J7030; J7050; P9016; Q9967

== ENCOUNTER → 2019-11-21 09:44 | Outpatient (BNVA) | payer MEDICARE, MEDICAID, SELFPAY | PROVIDERS: PCP Physician Assistant; Visit Provider Psychiatry & Neurology Psychiatry | DX: F33.2 Major depressive disorder, recurrent severe without psychotic features (principal); F15.21 Other stimulant dependence, in remission; F41.1 Generalized anxiety disorder; F60.3 Borderline personality disorder | CPT/HCPCS: 99214 ==

== ENCOUNTER 2019-11-24 12:57 | Outpatient (CLI) | payer MEDICARE, MEDICAID, SELFPAY ==
--- NOTE | 2019-11-24 13:03 | XR_ITS ---
WS: [id number] Weightbearing pelvis, weight-bearing AP left hip and frog-leg left hip, 11/24/2019. Clinical Data: ptop Comparison: AP pelvis, 11/04/2019. Findings: The left hip arthroplasty is in good position. Components have not changed. The right hip shows mild osteoarthritic narrowing. The SI joints and pubic symphysis are unremarkable. XR/XR hip LT 2-3V wo/w pel* [id number] Impression: Left hip arthroplasty.
== END 2019-11-24 12:58 | disposition home or self-care (01) ==
LOC: RAD 13:01
PROVIDERS: PCP Physician Assistant; Visit Provider Specialist
DX: Z96.642 Presence of left artificial hip joint (principal)
CPT/HCPCS: 73502

== ENCOUNTER → 2020-01-05 13:27 | Outpatient (BNVA) | payer MEDICARE, MEDICAID, SELFPAY | PROVIDERS: PCP Physician Assistant; Visit Provider Specialist | DX: M16.12 Unilateral primary osteoarthritis, left hip (principal); M87.052 Idiopathic aseptic necrosis of left femur; Z96.642 Presence of left artificial hip joint | CPT/HCPCS: 73502 ==

== ENCOUNTER 2020-01-12 10:15 | Outpatient (RCR) | payer MEDICARE, MEDICAID, SELFPAY | END 2020-01-12 23:59 | disposition home or self-care (01) | LOC: SPT 10:15 | PROVIDERS: PCP Physician Assistant; Referring Provider Specialist; Visit Provider Specialist | DX: Z47.1 Aftercare following joint replacement surgery (principal); Z96.642 Presence of left artificial hip joint | CPT/HCPCS: 97161 ==

== ENCOUNTER 2020-01-13 06:00 | Outpatient (RCR) | payer MEDICARE, MEDICAID, SELFPAY | END 2020-02-11 23:59 | disposition home or self-care (01) | LOC: SPT 06:00 | PROVIDERS: PCP Physician Assistant; Referring Provider Specialist; Visit Provider Specialist | DX: Z47.1 Aftercare following joint replacement surgery (principal); Z96.642 Presence of left artificial hip joint | CPT/HCPCS: 97110; 97112 ==

== ENCOUNTER 2020-02-12 06:00 | Outpatient (RCR) | payer MEDICARE, MEDICAID, SELFPAY | END 2020-02-24 15:31 | disposition home or self-care (01) | LOC: SPT 06:00 | PROVIDERS: PCP Physician Assistant; Referring Provider Specialist; Visit Provider Specialist | DX: Z47.1 Aftercare following joint replacement surgery (principal); Z96.642 Presence of left artificial hip joint | CPT/HCPCS: 97110 ==

== ENCOUNTER → 2020-04-28 15:13 | Outpatient (BNVA) | payer MEDICARE, SELFPAY | PROVIDERS: PCP Physician Assistant; Visit Provider Specialist | DX: M25.551 Pain in right hip (principal); Z96.642 Presence of left artificial hip joint | CPT/HCPCS: 73502 ==

== ENCOUNTER 2020-05-13 11:48 | Outpatient (CLI) | payer MEDICARE, MEDICAID, SELFPAY ==
[2020-05-13 12:35] LABS: Basophils % 0.6 %; Eosinophils # 0.2 10^3/uL (0.0-0.8); Eosinophils % 3.3 %; Hematocrit 41.3 % (37.0-47.0); Hemoglobin 13.4 g/dL (11.5-15.3); Lymphocytes # 2.2 10^3/uL (0.8-4.8); Lymphocytes % 45.4 %; Mean Corpuscular HGB Conc 32.4 g/dL (30.0-36.0); Mean Corpuscular Hemoglobin 30.2 pg (28.0-34.0); Mean Platelet Volume 10.4 fL (7.4-10.4); Monocytes # 0.3 10^3/uL (0.2-0.9); Monocytes % 6.6 %; Neutrophils # 2.11 10^3/uL (1.8-7.7); Neutrophils % 43.9 %; Nucleated Red Blood Cells % 0 %; Platelet Count 252 10^3/cmm (130-400); Red Blood Count 4.44 10^6/uL (4.1-5.3); Red Cell Distribution Width 11.9 % (12.1-15.1); White Blood Count 4.8 10^3/uL (4.0-10.0)
[2020-05-13 13:09] LABS: Calcium 9.2 mg/dL (8.5-10.5); Parathyroid Hormone 119.6 pg/mL (15-65)
[2020-05-13 13:23] LABS: Alanine Aminotransferase 10 U/L (0-33); Albumin Level 3.9 g/dL (3.5-5.2); Alkaline Phosphatase 97 IU/L (35-105); Anion Gap 11.2 (5-19); Aspartate Amino Transferase 16 U/L (0-32); Blood Urea Nitrogen 9 mg/dL (6-20); Calcium 9.1 mg/dL (8.5-10.5); Carbon Dioxide 30 mmol/L (22-29); Chloride 103 mmol/L (98-107); Chol HDL Ratio 2.24 mg/dL (0.0-4.40); Cholesterol 141 mg/dL (0-200); Globulin 3.5 g/dL (1.3-4.6); Glomerular Filtration Rate 166.3 mL/min (90-130); Glucose 90 mg/dL (65-115); HDL Cholesterol 63 mg/dL (60-100); Iron 104 ug/dL (37-145); LDL Cholesterol Calculated 59 mg/dL (50-129); LDL HDL Ratio 0.94 RATIO (0.00-3.22); Magnesium 2.1 mg/dL (1.7-2.3); Osmolality Calculated 288 mOsm/kg (285-295); Percent Saturation 35.9 % (20-50); Potassium 4.2 mmol/L (3.5-5.1); Sodium 140 mmol/L (136-145); Thyroid Stimulating Hormone 0.65 uIU/mL (0.27-4.20); Total Bilirubin 0.5 mg/dL (0.15-1.2); Total Iron Binding Capacity 289 mcg/dl; Total Protein 7.4 g/dL (6.6-8.7); Triglycerides 93 mg/dL (0-150); Unsaturated Iron Binding 185 ug/dL (112-347); Vitamin B12 256 pg/mL (232-1245)
[2020-05-13 13:24] LABS: Folate Level 12.4 ng/mL (4.8-37.3)
[2020-05-13 14:22] LABS: Estmated Average Glucose 91; Hemoglobin A1C 4.8 % (4.0-6.0)
== END 2020-05-13 11:49 | disposition home or self-care (01) ==
PROVIDERS: PCP Physician Assistant; Visit Provider Surgery
DX: D64.9 Anemia, unspecified (principal); E88.81 Metabolic syndrome and other insulin resistance; E66.01 Morbid (severe) obesity due to excess calories; M79.7 Fibromyalgia; E87.6 Hypokalemia
CPT/HCPCS: 36415; 80053; 80061; 82310; 82607; 82746; 83036; 83540; 83550; 83735; 83970; 84100; 84443; 85025

== ENCOUNTER 2020-06-22 07:44 | Outpatient (CLI) | payer MEDICARE, MEDICAID, SELFPAY ==
--- NOTE | 2020-06-22 08:00 | US_ITS ---
WS: [id number] ULTRASOUND THYROID TECHNIQUE: Ultrasound of the thyroid. CLINICAL INFORMATION: E21.3 - Hyperparathyroidism, unspecified COMPARISON: None. FINDINGS: Thyroid: Right and left thyroid lobes are normal in size and echotexture. Solid right thyroid nodule measuring 8.5 x 7.3 x 7.5 mm. Additional smaller hypoechoic nodule measuri ng 6.2 x 3.2 x 5.4 mm Hypoechoic left thyroid nodule measuring 4.8 x 2.6 x 4.2 mm Right thyroid lobe: 4.5 cm x 1.8 cm x 1.3 cm Left thyroid lobe: 4.8 cm x 2.1 cm x 1.3 cm. Isthmus: 0.3 mm. Cervical lymphadenopathy: A few slightly prominent normal-appearing lymph nodes in the bilateral neck largest measuring 2.6 x 0.7 x 0.9 cm with normal fatty hilum US/US thyroid [id number] IMPRESSION: 1. 3 subcentimeter solid thyroid nodules, 2 on the right and 1 on left describ ed above. Recommend 12 month follow-up. 2. A few prominent bilateral cervical lymph nodes nonspecific but likely react corona. Preserved fatty hilum.
== END 2020-06-22 07:45 | disposition home or self-care (01) ==
LOC: US 07:45
PROVIDERS: PCP Physician Assistant; Visit Provider Surgery
DX: E21.3 Hyperparathyroidism, unspecified (principal); E04.2 Nontoxic multinodular goiter
CPT/HCPCS: 76536

== ENCOUNTER → 2020-07-30 09:05 | Outpatient (BNVA) | payer MEDICARE, MEDICAID, SELFPAY | PROVIDERS: PCP Physician Assistant; Visit Provider Surgery | DX: Z12.11 Encounter for screening for malignant neoplasm of colon (principal) | CPT/HCPCS: 87635 ==